=== PATIENT | female | born 1935 | race Caucasian/White ===

== ENCOUNTER 2018-11-22 17:07 | Inpatient (IN) | payer MEDICARE, OTHER ==
[2018-11-22] MEDS ORDERED: cefTRIAXone\\ROCEPHIN 1 GM VIAL ONE (17:42)
[2018-11-22 17:48] LABS: #Eosinphils 0.1 thou/uL (0.0-0.7); #Lymphocytes 3.6 thou/uL (1.20-3.40); #Monocytes 0.6 thou/uL (0.11-0.59); #Neutrophils 6.4 thou/uL (1.40-6.50); %Basophils 0.2 % (0.0-1.0); %Eosinophils 0.8 % (0.0-10.0); %Lymphocytes 33.8 % (21.0-51.0); %Monocytes 5.8 % (0.0-10.0); %Neutrophils 59.4 % (42.0-75.0); Hemoglobin 12.6 g/dL (12.0-16.0); Mean Corpuscular HGB CONC 33.5 g/dL (32.0-36.0); Mean Corpuscular Hemoglobin 30.1 pg (27.0-31.0); Mean Platelet Volume 7.9 fL (7.4-10.4); Platelet Count 230 thou/uL (130-400); RBC Distribution Width 12.4 % (11.5-14.5); Red Blood Cell (RBC) Count 4.18 mill/uL (4.20-5.40); White Blood Cell (WBC) Count 10.7 thou/uL (4.8-10.8)
--- NOTE | 2018-11-22 18:05 | RAD ---
CHEST ONE VIEW: History: Dyspnea, sepsis. Comparison: None. FINDINGS: There is a patchy left basilar airspace opacity. Subtle opacity right lung base. The heart size is up per limits of normal. No acute osseous abnormality. IMPRESSION: Findings concerning for bibasilar pneumonia. Follow up after treatment recommended. POS: [facility]
[2018-11-22 18:06] LABS: ALT (SGPT) 25 U/L (8-55); AST (SGOT) 19 U/L (5-34); Albumin 4.1 g/dL (3.4-4.8); Alkaline Phosphatase 51 U/L (40-150); Anion Gap 14 mmol/L (10-20); BUN (Urea Nitrogen) 14 mg/dL (9.8-20.1); Bilirubin, Total 0.7 mg/dL (0.2-1.2); Calc. Creatinine Clearance 0 mL/min (70-130); Calcium 9.6 mg/dL (7.8-10.44); Carbon Dioxide 24 mmol/L (23-31); Chloride 104 mmol/L (98-107); Estimated GFR-MDRD 76; Globulin 3.5 g/dL (2.4-3.5); Glucose 131 mg/dL (83-110); Potassium 3.4 mmol/L (3.5-5.1); Protein, Total 7.6 g/dL (6.0-8.3); Sodium 139 mmol/L (136-145)
[2018-11-22] MEDS ORDERED: Acetaminophen 500 MG TAB ONE (18:37)
[2018-11-22 19:05] LABS: Bilirubin Negative (Negative); Blood, Urine Negative (Negative); Clarity CLEAR (Clear); Glucose, Urine (Dipstick) Negative (Negative); Leukocyte Moderate (Negative); Nitrite Negative (Negative); Protein, Urine (Dipstick) Trace mg/dL (Neg-Trace); Specific Gravity, Urine 1.018 (1.002-1.036); Urobilinogen 0.2 mg/dL (0.2-1.0); pH, Urine 5.5 (5.0-9.0)
[2018-11-22 19:07] LABS: Bacteria/HPF Rare-Few HPF (None Seen); Hyaline Casts/LPF 0-3 HYALINE CAST LPF (0-3 Hyaline); Pathc Cast-AUWi Flag 0.27 (0-2.49); RBC/HPF 0-3 HPF (0-3); Squamous Epithelial 0-3 HPF (0-3); WBC/HPF 21-50 HPF (0-3)
[2018-11-22] MEDS ORDERED: Azithromycin 500 MG VIAL ONE (19:07)
[2018-11-22] MEDS ORDERED: Oseltamivir 75 MG CAP PO SCH (19:15)
[2018-11-22] MEDS ORDERED: Acetaminophen 325 MG TAB PO PRN (20:27)
[2018-11-22] MEDS ORDERED: Ondansetron PF 4 MG/2 ML Vial IVP PRN (20:27)
[2018-11-22] MEDS ORDERED: Ondansetron ODT 4 MG TAB SL PRN (21:08)
--- NOTE | 2018-11-22 21:42 | PDOC.EVN ---
Event Note - Event Note Event Note: H&P #[id number]
[2018-11-22 21:56] LABS: Lactic Acid 2.1 mmol/L (0.5-2.2)
[2018-11-22 22:14] VITALS: BMI 26.8
--- NOTE | 2018-11-23 04:00 | HP ---
ADMITTING COMPLAINT: Shortness of breath. HISTORY OF PRESENT ILLNESS: This is an 83-year-old female, who presents to the hospital with complaints of flu-like symptoms, cough, as well as shortness of breath for about one week and malaise. The patient states that she has apparently had a 7-pound weight loss over the last week. Denies any nausea, vomiting, diarrhea, constipation, chest pain, fevers or chills, but does attest shortness of breath. The patient does not have any other associated symptoms or complaints. The patient states that she otherwise has no alleviating or aggravating factors. The patient was seen and examined in the room. All questions answered. REVIEW OF SYSTEMS: All systems reviewed. Pertinent positives in HPI, otherwise negative. PAST MEDICAL HISTORY: Positive for diabetes type 2, history of TIA, hypertension. FAMILY HISTORY: Noncontributory. HOME MEDICATIONS: See MAR. SOCIAL HISTORY: Denies any alcohol. Denies any smoking. PHYSICAL EXAMINATION: VITAL SIGNS: Blood pressure 135/75, pulse of 69, respiratory rate of 18, O2 saturation 97% on room air. GENERAL: No acute distress. Patient lying in bed comfortably. HEENT: Normocephalic and atraumatic. Extraocular muscles are intact. Oral cavity moist and pink. CARDIOVASCULAR: Reveals regular rate and rhythm. S1 and S2. PULMONARY: Reveals no respiratory distress, however, mild diminishing breath sounds in bilateral lower lobes. EXTREMITIES: 2+ peripheral pulses. Trace edema noted. NEUROLOGICAL: Cranial nerves 2 through 12 intact. IMAGING: Chest x-ray shows bibasilar pneumonia. LABORATORY DATA: CBC within normal limits. Basic metabolic panel within normal limits except for lactic acid which is 2.8, glucose of 131, potassium 3.4. Urinalysis; positive ketones, moderate leuks, and white blood cells of 21 to 25. ASSESSMENT: 1. Bronchitis. 2. Possible flu-like syndrome. 3. Lactic acidosis. 4. Hypokalemia. 5. Hypertension. 6. Diabetes mellitus, type 2. PLAN: At this point in time, we will admit the patient to the inpatient service. Start her on IV antibiotics. We will continue home medications and resume home medications as appropriate. Insulin for diabetes and hold metformin for now. The patient to have lab work done tomorrow and continue IV antibiotics likely for 1 to 2 days. Awaiting cultures. We will see how the patient progresses. Of note, the patient did have an influenza panel done in the ER, A and B, both antigens were negative, so we will hold off on the Tamiflu. Wishes to remain a full code at this point in time. Case and plan discussed with the patient at length. She understood and agreed with this plan. Job ID: [id number]
[2018-11-23] MEDS ORDERED: Prevnar 13-Val Conj/PF 0.5 ML SYRINGE IM ONE (09:00)
[2018-11-23] MEDS: Lisinopril 20 MG TAB PO SCH (09:04)
[2018-11-23] MEDS: Atorvastatin Calcium 10 MG TAB PO SCH (09:04)
[2018-11-23] MEDS: Aspirin 81 mg Enteric Coated Tablet PO SCH (09:04)
[2018-11-23 09:42] LABS: #Eosinphils 0.1 thou/uL (0.0-0.7); #Monocytes 0.4 thou/uL (0.11-0.59); #Neutrophils 4.4 thou/uL (1.40-6.50); %Basophils 0.4 % (0.0-1.0); %Lymphocytes 28.5 % (21.0-51.0); %Monocytes 6.4 % (0.0-10.0); %Neutrophils 63.7 % (42.0-75.0); Hemoglobin 10.8 g/dL (12.0-16.0); Mean Corpuscular HGB CONC 33.5 g/dL (32.0-36.0); Mean Corpuscular Volume 89.6 fL (78.0-98.0); Mean Platelet Volume 7.9 fL (7.4-10.4); Platelet Count 207 thou/uL (130-400); RBC Distribution Width 12.4 % (11.5-14.5); Red Blood Cell (RBC) Count 3.59 mill/uL (4.20-5.40); White Blood Cell (WBC) Count 6.8 thou/uL (4.8-10.8)
[2018-11-23 09:56] LABS: Lactic Acid 0.9 mmol/L (0.5-2.2)
[2018-11-23 09:59] LABS: Anion Gap 13 mmol/L (10-20); BUN (Urea Nitrogen) 7 mg/dL (9.8-20.1); Calc. Creatinine Clearance 83 mL/min (70-130); Calcium 8.4 mg/dL (7.8-10.44); Carbon Dioxide 24 mmol/L (23-31); Chloride 106 mmol/L (98-107); Estimated GFR-MDRD Greater than 90; Glucose 194 mg/dL (83-110); Magnesium 1.3 mg/dL (1.6-2.6); Potassium 3.2 mmol/L (3.5-5.1); Sodium 140 mmol/L (136-145)
[2018-11-23] MEDS: cefTRIAXone\\ROCEPHIN 2 GM in Sodium Chloride 0.9% 100 ML IVPB SCH (10:17)
[2018-11-23] MEDS ORDERED: Magnesium Sulfate 4 GM in Sodium Chloride 0.9% 250 ML 250 ML IVPB SCH (11:00)
[2018-11-23 11:53] LABS: Legionella Urinary Ag Negative (Negative); Strep pneumo Urine Ag NEGATIVE (NEGATIVE)
[2018-11-23] MEDS: guaiFENesin ER 600 MG TAB PO SCH (20:44)
[2018-11-23] MEDS ORDERED: guaiFENesin ER 600 MG TAB PO SCH (21:00)
--- NOTE | 2018-11-23 22:47 | PDOC.PN ---
- Subjective Encounter Start Date: 11/23/18 Encounter Start Time: 18:00 Patient seen and examined for Pneumonia. Dry cough +. No new complaints. No overnight events - Objective MAR Reviewed: Yes Vital Signs & Weight: Vital Signs (12 hours) Temp Pulse Resp BP Pulse Ox 11/23/18 22:23 131/74 11/23/18 19:38 98.6 F 96 20 169/82 H 96 11/23/18 18:50 72 16 95 Weight Weight 161 lb I&O: 11/22/18 11/23/18 11/24/18 06:59 06:59 06:59 Intake Total 250 Balance 250 Result Diagrams: 11/23/18 09:20 11/23/18 09:20 Additional Labs: Accuchecks 11/23/18 11/23/18 19:34 05:28 POC Glucose 217 H 152 H Laboratory Tests 11/23/18 09:20 Magnesium 1.3 L Radiology Reviewed by me: Yes (CXR - bibasilar infiltrate) Phys Exam - Physical Examination Constitutional: NAD Neck: no JVD Respiratory: no wheezing Bibasilar rales/rhonchi, No accessory muscle use Cardiovascular: RRR, no rub no heaves/pulsations Gastrointestinal: soft, non-tender, no distention, positive bowel sounds Musculoskeletal: no edema Neurological: non-focal, normal sensation, moves all 4 limbs Psychiatric: normal affect, A&O x 3 Skin: no rash Dx/Plan - Plan DVT proph w/SCDs 1. Bibasilar Pneumonia ?Pneumococcal 2. Recent URI 3. Hypokalemia 4. Hypomagnesemia 5. Lactic acidosis 6. HLD 7. h/o TIA 8. DM2 9. HTN PLAN: Replace electrolytes Add IV Ceftriaxone to Levaquin Await cultures [employer] eval to r/o aspiration AM labs Repeat CXR in AM Cont current meds as below Review of Systems - Review of Systems Cardiovascular: negative: chest pain, palpitations, orthopnea, paroxysmal nocturnal dyspnea, edema, light headedness, other Gastrointestinal: negative: Nausea, Vomiting, Abdominal Pain, Diarrhea, Constipation, Melena, Hematochezia, Other Genitourinary: negative: Dysuria, Frequency, Incontinence, Hematuria, Retention , Other - Medications/Allergies Allergies/Adverse Reactions: Allergies Allergy/AdvReac Type Severity Reaction Status Date / Time iodine Allergy Verified 11/22/18 21:22 Sulfa (Sulfonamide Allergy Verified 11/22/18 21:22 Antibiotics) Medications: Current Medications Acetaminophen (Tylenol) 650 mg PO Q4H PRN PRN Reason: Headache/Fever/Mild Pain (1-3) Albuterol/Ipratropium (Duoneb) 3 ml NEB [id number] [facility] Last Admin: 11/23/18 18:50 Dose: 3 ml Albuterol/Ipratropium (Duoneb) 3 ml NEB Q4H PRN PRN Reason: SOB &/or Wheezing Aspirin (Ecotrin) 81 mg PO DAILY [facility] Last Admin: 11/23/18 09:04 Dose: 81 mg Atorvastatin Calcium (Lipitor) 10 mg PO DAILY [facility] Last Admin: 11/23/18 09:04 Dose: 10 mg Guaifenesin (Mucinex) 600 mg PO Q12HR [facility] Last Admin: 11/23/18 20:44 Dose: 600 mg Levofloxacin 500 mg/ Device 100 mls @ 100 mls/hr IVPB Q24HR [facility] Last Admin: 11/23/18 20:44 Dose: 100 mls Ceftriaxone Sodium 2 gm/ (Sodium Chloride) 100 mls @ 200 mls/hr IVPB Q24HR [facility] Last Admin: 11/23/18 10:17 Dose: 100 mls Lisinopril (Zestril) 20 mg PO DAILY [facility] Last Admin: 11/23/18 09:04 Dose: 20 mg Non-Formulary Medication (Metformin Hcl [Metformin Hcl]) 1,000 mg PO DAILY [facility] Ondansetron HCl (Zofran) 4 mg IVP Q6H PRN PRN Reason: Nausea/Vomiting Saccharomyces Boulardii (Florastor) 250 mg PO DAILY [facility] Sitagliptin Phosphate (Januvia) 100 mg PO DAILY [facility] Verapamil HCl (Calan Sr) 240 mg PO DAILY [facility] Last Admin: 11/23/18 09:04 Dose: 240 mg
[2018-11-24] MEDS ORDERED: metFORMIN 500 MG TAB PO SCH (08:00)
[2018-11-24 08:26] LABS: #Eosinphils 0.1 thou/uL (0.0-0.7); #Lymphocytes 1.9 thou/uL (1.20-3.40); #Monocytes 0.5 thou/uL (0.11-0.59); #Neutrophils 3.6 thou/uL (1.40-6.50); %Basophils 0.6 % (0.0-1.0); %Eosinophils 1.1 % (0.0-10.0); %Lymphocytes 31.6 % (21.0-51.0); %Monocytes 8.3 % (0.0-10.0); %Neutrophils 58.4 % (42.0-75.0); Hemoglobin 10.5 g/dL (12.0-16.0); Mean Corpuscular HGB CONC 32.4 g/dL (32.0-36.0); Mean Corpuscular Hemoglobin 29.5 pg (27.0-31.0); Mean Corpuscular Volume 91.2 fL (78.0-98.0); Mean Platelet Volume 7.6 fL (7.4-10.4); Platelet Count 229 thou/uL (130-400); RBC Distribution Width 12.4 % (11.5-14.5); Red Blood Cell (RBC) Count 3.57 mill/uL (4.20-5.40); White Blood Cell (WBC) Count 6.1 thou/uL (4.8-10.8)
[2018-11-24] MEDS ORDERED: Magnesium Sulfate 4 GM in Sodium Chloride 0.9% 250 ML 250 ML IVPB SCH (08:45)
[2018-11-24] MEDS ORDERED: Potassium Chloride 10 MEQ TAB PO SCH (08:45)
[2018-11-24 08:47] LABS: Phosphorus 3.2 mg/dL (2.3-4.7)
[2018-11-24 08:50] LABS: ALT (SGPT) 14 U/L (8-55); AST (SGOT) 12 U/L (5-34); Albumin 3.4 g/dL (3.4-4.8); Alkaline Phosphatase 48 U/L (40-150); Anion Gap 15 mmol/L (10-20); BUN (Urea Nitrogen) 5 mg/dL (9.8-20.1); Bilirubin, Total 0.4 mg/dL (0.2-1.2); Calc. Creatinine Clearance 72 mL/min (70-130); Calcium 8.5 mg/dL (7.8-10.44); Carbon Dioxide 25 mmol/L (23-31); Chloride 104 mmol/L (98-107); Estimated GFR-MDRD 81; Globulin 3.1 g/dL (2.4-3.5); Glucose 221 mg/dL (83-110); Magnesium 1.9 mg/dL (1.6-2.6); Protein, Total 6.5 g/dL (6.0-8.3); Sodium 141 mmol/L (136-145)
[2018-11-24 08:58] LABS: Potassium 2.9 mmol/L (3.5-5.1)
[2018-11-24] MEDS: Alogliptin 6.25 MG TAB PO SCH (09:04)
[2018-11-24] MEDS: Doxycycline 100 MG CAP PO SCH ×2 (09:04→20:21)
[2018-11-24] MEDS: Aspirin 81 mg Enteric Coated Tablet PO SCH (09:04)
[2018-11-24] MEDS: guaiFENesin ER 600 MG TAB PO SCH ×2 (09:04→20:21)
[2018-11-24] MEDS: Saccharomyces boulardii 250 MG CAP PO SCH (09:04)
[2018-11-24] MEDS: Lisinopril 20 MG TAB PO SCH (09:05)
[2018-11-24] MEDS: Atorvastatin Calcium 10 MG TAB PO SCH (09:05)
[2018-11-24] MEDS: cefTRIAXone\\ROCEPHIN 2 GM in Sodium Chloride 0.9% 100 ML IVPB SCH (09:09)
[2018-11-24] MEDS ORDERED: Potassium Chloride 40 MEQ in Premix Bag 1 BAG IVPB SCH (09:15)
--- NOTE | 2018-11-24 09:28 | RAD ---
PA AND LATERAL VIEWS CHEST: Date: 11/24/18 HISTORY: Pneumonia. FINDINGS: The heart size is normal. The aorta is tortuous. The lungs are well expanded without focal areas of c onsolidation, pneumothoraces, or pleural effusions. No acute osseous abnormalities are seen. IMPRESSION: No acute process. POS: [facility]
[2018-11-24] MEDS: Potassium Chloride 20 MEQ in Premix Bag 1 BAG IVPB SCH ×2 (11:00→14:24)
[2018-11-24] MEDS: Potassium Chloride 10 MEQ TAB PO SCH ×2 (11:51→16:18)
[2018-11-24] MEDS ORDERED: Insulin Regular 300 UNITS/3 ML VIAL SC PRN (12:03)
[2018-11-24] MEDS ORDERED: Dextrose 50% Abboject 50 ML SYRINGE SLOW IVP PRN (12:03)
[2018-11-24] MEDS ORDERED: Dextrose 5% in Water 1,000 ML IV PRN (12:03)
[2018-11-24] MEDS ORDERED: Polyethylene Glycol 3350 17 GM Packet PO SCH (12:45)
[2018-11-24] MEDS: Insulin Regular 300 UNITS/3 ML VIAL SC PRN (12:52)
[2018-11-24] MEDS: metFORMIN 500 MG TAB PO SCH (16:17)
--- NOTE | 2018-11-24 18:32 | PDOC.PN ---
- Subjective Encounter Start Date: 11/24/18 Encounter Start Time: 13:30 Patient seen and examined for Pneumonia. Feeling somewhat better. Cough +. No new complaints. No overnight events - Objective MAR Reviewed: Yes Vital Signs & Weight: Vital Signs (12 hours) Temp Pulse Resp BP BP Pulse Ox 11/24/18 15:00 78 16 97 11/24/18 10:25 82 16 97 11/24/18 10:19 95 11/24/18 09:05 127/63 11/24/18 08:10 98.5 F 96 16 127/63 95 11/24/18 06:36 88 16 96 Weight Weight 161 lb I&O: 11/23/18 11/24/18 11/25/18 06:59 06:59 06:59 Intake Total 250 900 Balance 250 900 Result Diagrams: 11/24/18 07:51 11/24/18 07:51 Additional Labs: Accuchecks 11/24/18 11/24/18 11/23/18 16:17 11:44 19:34 POC Glucose 141 H 282 H 217 H Radiology Reviewed by me: Yes (CXR - bronchopneumonia) Phys Exam - Physical Examination Constitutional: NAD Respiratory: no wheezing Scat rhonchi Cardiovascular: RRR, no rub Gastrointestinal: soft, non-tender, positive bowel sounds Musculoskeletal: no edema Neurological: non-focal, moves all 4 limbs Dx/Plan - Plan DVT proph w/SCDs 1. Bonchopneumonia ?Pneumococcal 2. Recent URI 3. Hypokalemia 4. Hypomagnesemia 5. Lactic acidosis 6. HLD 7. h/o TIA 8. DM2 9. HTN PLAN: Replace Potassium Change Atbx to PO Await cultures Potassium level in AM DC in AM if stable Cont other meds as below Microbiology 11/22/18 18:50 Urine voided Urine Culture - Final NO GROWTH AT 48 HOURS 11/22/18 17:40 Nasal swab Influenza Types A,B Direct EIA - Final 11/22/18 17:30 Venous blood - Right Arm Blood Culture - Preliminary NO GROWTH AT 48 HOURS 11/22/18 17:29 Venous blood - Left Arm Blood Culture - Preliminary NO GROWTH AT 48 HOURS Laboratory Tests 11/24/18 07:51 Magnesium 1.9 Review of Systems - Review of Systems Constitutional: negative: fever, chills, sweats, weakness, malaise, other Respiratory: Cough, Dry Cardiovascular: negative: chest pain, palpitations, orthopnea, paroxysmal nocturnal dyspnea, edema, light headedness, other - Medications/Allergies Allergies/Adverse Reactions: Allergies Allergy/AdvReac Type Severity Reaction Status Date / Time iodine Allergy Verified 11/22/18 21:22 Sulfa (Sulfonamide Allergy Verified 11/22/18 21:22 Antibiotics) Medications: Current Medications Acetaminophen (Tylenol) 650 mg PO Q4H PRN PRN Reason: Headache/Fever/Mild Pain (1-3) Last Admin: 11/24/18 03:53 Dose: 650 mg Albuterol/Ipratropium (Duoneb) 3 ml NEB [id number] [facility] Last Admin: 11/24/18 15:00 Dose: 3 ml Albuterol/Ipratropium (Duoneb) 3 ml NEB Q4H PRN PRN Reason: SOB &/or Wheezing Last Admin: 11/24/18 04:12 Dose: 3 ml Alogliptin Benzoate (Alogliptin) 12.5 mg PO DAILY [facility] Last Admin: 11/24/18 09:04 Dose: 12.5 mg Aspirin (Ecotrin) 81 mg PO DAILY [facility] Last Admin: 11/24/18 09:04 Dose: 81 mg Atorvastatin Calcium (Lipitor) 10 mg PO DAILY [facility] Last Admin: 11/24/18 09:05 Dose: 10 mg Cefdinir (Omnicef) 300 mg PO BID [facility] Dextrose/Water (Dextrose 50%) 25 gm SLOW IVP PRN PRN PRN Reason: Hypoglycemia Doxycycline Hyclate (Vibramycin) 100 mg PO BID [facility] Last Admin: 11/24/18 09:04 Dose: 100 mg Glucagon (Glucagon) 1 mg IM PRN PRN PRN Reason: Hypoglycemia Guaifenesin (Mucinex) 600 mg PO Q12HR [facility] Last Admin: 11/24/18 09:04 Dose: 600 mg Dextrose/Water (D5w) 1,000 mls @ 0 mls/hr IV .Q0M PRN PRN Reason: Hypoglycemia Insulin Human Regular (Humulin R) 0 units SC .MILD SLIDING SCALE PRN PRN Reason: Mild Correctional Scale Last Admin: 11/24/18 12:52 Dose: 282 unit Insulin Human Regular (Humulin R) 0 units SC .BEDTIME SLIDING SC PRN PRN Reason: Bedtime Correctional Scale Lisinopril (Zestril) 20 mg PO DAILY [facility] Last Admin: 11/24/18 09:05 Dose: 20 mg Metformin HCl (Glucophage) 1,000 mg PO BID[facility] Last Admin: 11/24/18 16:17 Dose: 1,000 mg Ondansetron HCl (Zofran) 4 mg IVP Q6H PRN PRN Reason: Nausea/Vomiting Polyethylene Glycol (Miralax) 17 gm PO DAILY [facility] Potassium Chloride (Klor-Con 10) 10 meq PO TID-[facility] Last Admin: 11/24/18 16:18 Dose: 10 meq Saccharomyces Boulardii (Florastor) 250 mg PO DAILY [facility] Last Admin: 11/24/18 09:04 Dose: 250 mg Senna/Docusate Sodium (Senokot S) 2 tab PO BID [facility] Sodium Chloride (Flush - Normal Saline) 10 ml IVF Q12HR [facility] Sodium Chloride (Flush - Normal Saline) 10 ml IVF PRN PRN PRN Reason: Saline Flush Verapamil HCl (Calan Sr) 240 mg PO DAILY [facility] Last Admin: 11/24/18 09:04 Dose: 240 mg
[2018-11-24] MEDS: Cefdinir 300 MG CAP PO SCH (20:21)
[2018-11-24] MEDS: Senokot S 8.6-50 MG TAB PO SCH (20:21)
[2018-11-25] MEDS: Insulin Regular 300 UNITS/3 ML VIAL SC PRN (05:50)
[2018-11-25 07:38] LABS: Potassium 4.3 mmol/L (3.5-5.1)
[2018-11-25] MEDS: guaiFENesin ER 600 MG TAB PO SCH (08:22)
[2018-11-25] MEDS: Senokot S 8.6-50 MG TAB PO SCH (08:22)
[2018-11-25] MEDS: Cefdinir 300 MG CAP PO SCH (08:22)
[2018-11-25] MEDS: Doxycycline 100 MG CAP PO SCH (08:24)
[2018-11-25] MEDS: Alogliptin 6.25 MG TAB PO SCH (08:24)
[2018-11-25] MEDS: metFORMIN 500 MG TAB PO SCH (08:25)
[2018-11-25] MEDS: Saccharomyces boulardii 250 MG CAP PO SCH (08:25)
[2018-11-25] MEDS: Lisinopril 20 MG TAB PO SCH (08:25)
[2018-11-25] MEDS: Aspirin 81 mg Enteric Coated Tablet PO SCH (08:26)
[2018-11-25] MEDS: Potassium Chloride 10 MEQ TAB PO SCH ×2 (08:26→11:46)
[2018-11-25] MEDS: Atorvastatin Calcium 10 MG TAB PO SCH (08:26)
[2018-11-25] MEDS ORDERED: Polyethylene Glycol 3350 17 GM Packet PO SCH (09:00)
--- NOTE | 2018-11-25 14:42 | DIS ---
DATE OF ADMISSION: 11/22/2018 DATE OF DISCHARGE: 11/25/2018 DISCHARGE DISPOSITION: Home. FOLLOWUP: Follow up with primary care physician, Dr. Anabelle Weller in 1 week. A repeat basic metabolic profile after 1 to 2 weeks is recommended. Primary care physician advised to follow. The patient was seen and examined on the day of discharge. Denies any new complaints. No chest pain, shortness of breath, or palpitations reported. Overall symptomatically, she feels much better. ALLERGIES: THE PATIENT IS ALLERGIC TO IODINE AND SULFA. DISCHARGE MEDICATIONS: 1. Omnicef 300 mg twice a day for next 5 days. 2. Mucinex twice daily for 1 week. 3. All other home medications were left unchanged. BRIEF HOSPITAL COURSE: The patient is an 83-year-old female with diabetes mellitus type 2 and hypertension, presented to the hospital with cough and shortness of breath of 1-week duration. She has not been eating well and has lost approximately 7 pounds over the last 1 week. Please refer to the history and physical for further details. The patient was admitted to the hospital with a diagnosis of suspected pneumonia. She was started on broad-spectrum antibiotics. X-ray on admission showed bibasilar pneumonia. She did not have any swallowing difficulty per Speech Therapies. Antibiotics have been changed to p.o. She had a chest x-ray, PA and lateral yesterday that did not show new infiltrate. Overall, she feels much better. She had hypokalemia with potassium 2.9, which has been replaced. Her potassium on the day of discharge is 4.3. Her magnesium has also been corrected. DIAGNOSTIC TESTS: Magnesium 1.3, at discharge 1.9. Potassium lowest 2.9, at discharge 4.3. WBC of 10.7. Lactic acid 2.8 on admission. Troponin was negative. Urine for Legionella pneumophila and Streptococcus pneumoniae negative. Urinalysis showed 21 to 50 wbc's with negative urine culture. Blood cultures were negative at 48 hours. Influenza testing was negative. FINAL DIAGNOSES: 1. Bronchopneumonia, suspected pneumococcal. 2. Recent upper respiratory tract infection. 3. Hypokalemia, replaced. 4. Hypomagnesemia, replaced. 5. Lactic acidosis. 6. Hyperlipidemia. 7. History of transient ischemic attack. 8. Diabetes mellitus, type 2. 9. Hypertension. 10. Weight loss of approximately 7 pounds recently due to poor appetite. Primary care physician advised to follow. PLAN: Plan of care was discussed with the patient and the family in detail they stated understanding. Job ID: [id number]
[2018-11-25 15:51] VITALS: BP 137/73; TEMP 97.4
== END 2018-11-25 15:56 | disposition home or self-care (01) | DRG 194 ==
LOC: ERS 17:07 → T4-A 18:40
PROVIDERS: ADMIT Emergency Medicine; ATTEND Emergency Medicine
DX: J13 Pneumonia due to Streptococcus pneumoniae (principal); E87.2 Acidosis; E11.9 Type 2 diabetes mellitus without complications; I10 Essential (primary) hypertension; E87.6 Hypokalemia; J40 Bronchitis, not specified as acute or chronic; E83.42 Hypomagnesemia; E78.5 Hyperlipidemia, unspecified; R63.4 Abnormal weight loss; Z86.73 Personal history of transient ischemic attack (TIA), and cerebral infarction without residual deficits; Z88.2 Allergy status to sulfonamides; Z91.041 Radiographic dye allergy status; Z68.26 Body mass index [BMI] 26.0-26.9, adult
CPT/HCPCS: 36415; 36416; 71045; 71046; 80048; 80053; 81003; 81015; 83605; 83735; 83880; 84100; 84132; 84443; 84484; 85025; 85060; 87040; 87086; 87804; 87899; 90471; 90670; 93005; 94640; 94760; 96365; 96367; 99292; G0009; J0456; J0696; J1815; J1956; J3475; J3480; J7050; J7620

== ENCOUNTER 2019-09-25 10:52 | Emergency (ER) | payer MEDICARE, OTHER ==
[2019-09-25 12:10] LABS: Bilirubin Negative (Negative); Blood, Urine Negative (Negative); Clarity Clear (Clear); Glucose, Urine (Dipstick) Normal (Negative); Leukocyte Negative Leu/uL (Negative); Nitrite Negative (Negative); Protein, Urine (Dipstick) Negative (Neg-Trace); Urobilinogen Normal mg/dL (Less than 2)
== END 2019-09-25 13:00 | disposition home or self-care (01) ==
LOC: ERS 10:52
DX: E11.65 Type 2 diabetes mellitus with hyperglycemia (principal); I10 Essential (primary) hypertension; Z86.73 Personal history of transient ischemic attack (TIA), and cerebral infarction without residual deficits; Z79.899 Other long term (current) drug therapy; Z79.82 Long term (current) use of aspirin; Z79.84 Long term (current) use of oral hypoglycemic drugs
CPT/HCPCS: 36416; 81003; 99283

== ENCOUNTER 2020-02-12 11:34 | Emergency (ER) | payer MEDICARE, OTHER ==
[~2020-02-12 11:34] MED LIST: Iopamidol-370 76% 500 ML 1 ML ONE
[2020-02-12 12:18] LABS: Bilirubin Negative (Negative); Blood, Urine Negative (Negative); Clarity Clear (Clear); Glucose, Urine (Dipstick) Normal (Negative); Leukocyte Negative Leu/uL (Negative); Nitrite Negative (Negative); Protein, Urine (Dipstick) Negative (Neg-Trace); Urobilinogen Normal mg/dL (Less than 2)
[2020-02-12] MEDS ORDERED: Ketorolac Tromethamine 30 MG/ML VIAL ONE (12:24)
[2020-02-12 12:48] LABS: #Basophils 0.1 thou/uL (0.0-0.2); #Eosinphils 0.1 thou/uL (0.0-0.7); #Monocytes 0.7 thou/uL (0.11-0.59); #Neutrophils 6.2 thou/uL (1.40-6.50); %Basophils 0.7 % (0.0-1.0); %Eosinophils 0.6 % (0.0-10.0); %Lymphocytes 29.7 % (21.0-51.0); %Monocytes 7.3 % (0.0-10.0); %Neutrophils 61.7 % (42.0-75.0); Mean Corpuscular HGB CONC 33.6 g/dL (32.0-36.0); Mean Corpuscular Hemoglobin 31.2 pg (27.0-31.0); Mean Corpuscular Volume 92.8 fL (78.0-98.0); Mean Platelet Volume 7.9 fL (7.4-10.4); Platelet Count 225 thou/uL (130-400); RBC Distribution Width 12.6 % (11.5-14.5); Red Blood Cell (RBC) Count 3.84 mill/uL (4.20-5.40); White Blood Cell (WBC) Count 10.1 thou/uL (4.8-10.8)
[2020-02-12 13:07] LABS: ALT (SGPT) 12 U/L (8-55); AST (SGOT) 20 U/L (5-34); Albumin 3.9 g/dL (3.4-4.8); Alkaline Phosphatase 43 U/L (40-110); Anion Gap 18 mmol/L (10-20); BUN (Urea Nitrogen) 13 mg/dL (9.8-20.1); Bilirubin, Total 0.4 mg/dL (0.2-1.2); Calc. Creatinine Clearance 0 mL/min (70-130); Calcium 9.1 mg/dL (7.8-10.44); Carbon Dioxide 25 mmol/L (23-31); Chloride 102 mmol/L (98-107); Estimated GFR-MDRD 84; Globulin 3.4 g/dL (2.4-3.5); Glucose 94 mg/dL (83-110); Potassium 4.6 mmol/L (3.5-5.1); Protein, Total 7.3 g/dL (6.0-8.3); Sodium 140 mmol/L (136-145)
[2020-02-12] MEDS ORDERED: Acetaminophen 500 MG TAB ONE (14:27)
[2020-02-12] MEDS ORDERED: diphenhydrAMINE 50 MG/ML VIAL ONE (15:43)
[2020-02-12] MEDS ORDERED: methylPREDNISolone Sod Succ/PF 125 MG/2 ML VIAL ONE (15:44)
[2020-02-12] MEDS ORDERED: Famotidine/PF 20 mg/2ml Vial ONE (15:44)
--- NOTE | 2020-02-12 19:13 | CT ---
CT ABDOMEN AND PELVIS: Date: 02-12-2020 Comparison: None History: Rectal pain radiating to the back. Technique: Axial CT imaging at 5 mm intervals from the lung bases through the pubic symphysis with in travenous contrast. Coronal and sagittal reformatted imaging obtained. FINDINGS: Imaged lung bases grossly unremarkable. Cholecystectomy clips are present. No free intraperitoneal ai r or fluid. The liver, spleen, pancreas, and adrenal glands appear grossly unremarkable. There is a small cyst em anating from the upper pole of the left kidney measuring approximately 1.2 cm. There are a few punct ate calcifications within the left kidney which may represent nonobstructing stones or vascular calci fications. Evaluation of the bowel is limited without contrast media. There is mild stranding of the fat adjacent to the tip of the coccyx extending posteriorly and superi jane which may represent a mild degree of inflammatory change in this region. No significant rectal w all thickening is noted. There is no stranding of the presacral fat and there is no free fluid seen w ithin the pelvis. There is significant stool noted throughout the colon. There is no evidence for bowel obstruction. No focal area of bowel dilation. There is extensive atherosclerotic calcification of the abdominal aort a and its branches. There is a small hiatal hernia. No lymphadenopathy is noted within the abdomen or pelvis. Review of the osseous structures demonstrate age indeterminate superior endplate fracture of L5. There is multilevel lower lumbar spine facet hypertrophy. There is a normal appearing appendix noted. IMPRESSION: 1. No free intraperitoneal air or evidence of small bowel obstruction. Mild fat stranding adjacent to the tip of the coccyx may signify a mild degree of inflammatory change. Significant stool seen throu ghout the colon. POS: [facility]
== END 2020-02-12 18:52 | disposition home or self-care (01) ==
LOC: ERS 11:34
DX: K64.4 Residual hemorrhoidal skin tags (principal); S43.409A Unspecified sprain of unspecified shoulder joint, initial encounter; E11.9 Type 2 diabetes mellitus without complications; I10 Essential (primary) hypertension; Z86.73 Personal history of transient ischemic attack (TIA), and cerebral infarction without residual deficits; Z79.82 Long term (current) use of aspirin; Z79.84 Long term (current) use of oral hypoglycemic drugs; Z79.899 Other long term (current) drug therapy
CPT/HCPCS: 36415; 74177; 80053; 81003; 82274; 85025; 96374; 96375; J1200; J1885; J2930; Q9967; S0028

== ENCOUNTER 2020-02-28 09:40 | Outpatient (CLI) | payer MEDICARE, OTHER ==
[2020-02-29 13:56] LABS: SARS-CoV-2 MS2 Positive; SARS-CoV-2 N Gene Negative; SARS-CoV-2 S Gene Negative; SARS-CoV-2 orf1ab Negative
== END 2020-02-28 09:41 | disposition home or self-care (01) ==
LOC: LABBT 09:40
PROVIDERS: ATTEND Specialist
DX: Z01.812 Encounter for preprocedural laboratory examination (principal); Z11.59 Encounter for screening for other viral diseases; K59.00 Constipation, unspecified; M53.3 Sacrococcygeal disorders, not elsewhere classified; M48.46XA Fatigue fracture of vertebra, lumbar region, initial encounter for fracture
CPT/HCPCS: 87635; U0003

== ENCOUNTER 2020-03-02 09:46 | Day surgery (SDC) | payer MEDICARE, OTHER ==
[2020-03-02] MEDS ORDERED: Magnevist 469MG/ML 20 ML VIAL ONE (10:14)
[2020-03-02] MEDS ORDERED: Lidocaine 1% PF 5 ML VIAL ONE (10:57)
[2020-03-02] MEDS ORDERED: Ondansetron PF 4 MG/2 ML Vial ONE (10:57)
[2020-03-02] MEDS ORDERED: PROPOFOL 200 MG/20 ML VIAL ONE (10:57)
[2020-03-02] MEDS ORDERED: Fentanyl 100 MCG/2 ML VIAL ONE (11:59)
--- NOTE | 2020-03-02 13:56 | MRI ---
Exam: Pelvic MRI with and without contrast HISTORY: Sacrococcygeal disorder. COMPARISON: None FINDINGS: Visualized intra-abdominal and pelvic structures have appropriate signal intensity. Visualized bladder has a normal mucosa. Normal reproductive organs are not appreciated. Findings are compatible with previous hysterectomy. Coronal T1-weighted images demonstrate preservation of fat in the neural foramina. There is appropria te T1 marrow signal intensity of the sacrum and bony pelvis. Visualized hips also have appropriate signal intensity. No abnormal enhancement in the osseous structures on the postcontrast images. There is T1 hypointensity with associated edema and enhancement involving the soft tissues overlying the coccyx. There is a corresponding finding on recent CT. There does appear to be T2 hyperintense focus with associated peripheral enhancement involving the right paramedian gluteal soft tissues matthew uring 1 cm compatible with a small perirectal/soft tissue abscess. There is a similar finding left paramedian in location measuring 0.6 cm. Fat saturated images demonstrate subtle enhancement involving the tip of the coccyx suggesting a comp onent of osteomyelitis. IMPRESSION: 1. Perirectal/gluteal soft tissue phlegmon and microabscesses as described above. 2. 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 Transcribed Date/Time: 03/02/2020 2:19 PM
--- NOTE | 2020-03-02 14:28 | MRI ---
MRI LUMBAR SPINE WITH AND WITHOUT CONTRAST: DATE: 03/02/2020 HISTORY: 84-year-old female with low back pain COMPARISON: None TECHNIQUE: Multiple sequences obtained in axial and sagittal planes, pre and post IV injection of gadolinium-bas ed contrast agent. FINDINGS: 5 lumbar-type vertebrae. Mild left-lateral curvature centered at mid L-spine. Mild right-lateral curv ature at lower lumbar spine. Conus medullaris terminates at L2.. T12-L1:Hemangioma of bone at right side of T12 vertebral body. Minimal disc bulge. Otherwise normal. L1-2:Minimal disc bulge. Otherwise normal. L2-3:Mild disc bulge. Disc space maintained. No high-grade neural foraminal stenosis. No central spin al canal stenosis. Mild bilateral facet DJD with small facet joint effusions. L3-4:Mild disc space narrowing. Moderate sized diffuse disc bulge. Moderate ligamentum flavum thicken ing. Bilateral facet joint effusion. Moderate bilateral facet DJD. Mild to moderate bilateral neural foraminal stenosis. Moderate central spinal canal and lateral recess stenosis bilaterally. L4-5:Severe bilateral facet DJD causes grade 1 anterolisthesis of L4 on L5. Focal deep central depres jung of L5 superior endplate probably representing a large Schmorl's node. 1 cm round focal enhancing lesion with heterogeneous T2 signal in the L5 vertebral body, abutting the posterior edge o f the Schmorl's node. This is nonspecific, but could represent a second, acute or subacute component of Schmorl's node. Prominent diffuse disc bulge. Left anterior inferior L4 vertebral body h emangioma of bone with adjacent small Schmorl's node. Moderate bilateral neural foraminal stenosis. High-grade lateral recess stenosis bilaterally. Moderate central spinal canal stenosis. L5-S1:Diffuse disc bulge. Asymmetrically larger left asymmetrical lateral and far lateral disc bulge- osteophyte complex causes mild to moderate left neural foraminal stenosis. No right neural foraminal stenosis. Superimposed small focal central disc herniation with annular fissure indents miguel tral aspect of thecal sac. The left paracentral component of this abuts the left S1 nerve root. No central spinal canal stenosis. IMPRESSION: 1) moderate lumbar spondylosis, with severe degenerative disc disease at L4-5, and mild and moderate degenerative disc disease at L2-3, L3-4, and L5-S1. 2) grade 1 anterolisthesis of L4 on L5 due to severe bilateral facet osteoarthrosis at L4-5. This res ults in severe lateral recess stenosis bilaterally and moderate central spinal canal stenosis.
== END 2020-03-02 15:15 | disposition home or self-care (01) ==
LOC: SDC/OP 09:46 → EDSTATUS 12:00 → SDC/OP 15:15
PROVIDERS: ATTEND Specialist
DX: M53.3 Sacrococcygeal disorders, not elsewhere classified (principal); M46.28 Osteomyelitis of vertebra, sacral and sacrococcygeal region; M47.816 Spondylosis without myelopathy or radiculopathy, lumbar region; M51.36 Other intervertebral disc degeneration, lumbar region; M51.37 Other intervertebral disc degeneration, lumbosacral region; M48.061 Spinal stenosis, lumbar region without neurogenic claudication; I10 Essential (primary) hypertension; E11.9 Type 2 diabetes mellitus without complications; K59.00 Constipation, unspecified; Z79.82 Long term (current) use of aspirin; Z79.84 Long term (current) use of oral hypoglycemic drugs; Z79.899 Other long term (current) drug therapy; Z88.2 Allergy status to sulfonamides; Z91.041 Radiographic dye allergy status
CPT/HCPCS: 72158; 72197; A9579; J2001; J2405; J2704; J3010

== ENCOUNTER 2020-03-12 11:38 | Inpatient (IN) | payer MEDICARE, OTHER ==
[2020-03-12 12:47] VITALS: BMI 24.5
[2020-03-12] MEDS: HYDROcodone/Acetaminophen 5/325 mg Tablet PO PRN ×3 (13:01→22:04)
[2020-03-12] MEDS: Vancomycin 1 GM in Premix Bag 1 BAG IVPB SCH (13:14)
[2020-03-12] MEDS: Sodium Chloride 0.9% 1,000 ML IV SCH (13:30)
[2020-03-12] MEDS: metroNIDAZOLE 500 MG in Premix Bag 1 BAG IVPB SCH ×2 (14:48→20:07)
[2020-03-12] MEDS ORDERED: Magnesium Citrate 300 ML BOT PO PRN (15:27)
[2020-03-12] MEDS ORDERED: Lorazepam 1 MG TAB PO PRN (16:12)
--- NOTE | 2020-03-12 16:12 | CON ---
DATE OF CONSULTATION: 03/12/2020 REASON FOR CONSULTATION: Perirectal abscess with coccygeal osteomyelitis. HISTORY OF PRESENT ILLNESS: An 84-year-old with history of type 2 diabetes and hypertension, who about 2 months before admission developed severe constipation. She ascribes it to the initiation of a new diabetes treatment with injectable medication. She was basically taking laxatives daily to be able to have a bowel movement. Of late, she was using phosphate compounds as laxatives. Anyways, she started noticing pain in the coccygeal area and was referred to Dr. Perry. She had abdomen and pelvis CT on 02/11, which demonstrated constipation, but no obstruction and no lymphadenopathy. There was an indeterminate superior endplate fracture of L5, but no other findings of significance. This was a noncontrast study. In the study, it has described a mild stranding of the fat adjacent to the tip of the coccyx extending posteriorly and superiorly with mild degree of inflammatory change in this region. The MRI showed much clear inflammatory changes with evidence of perirectal and gluteal soft tissue phlegmon and micro abscesses, measuring about 1 cm and another one 0.6 cm, and then the obvious component of osteomyelitis of the coccygeal area. The patient in the clinic was having severe pain. She could not sit flat on the examining table. She had to sit on one side or the other in the gluteal area. She was in obvious distress from that, had been experiencing sweats and chills, but did not measure her temperature. No headaches. No shortness of breath or cough. She had some abdominal pain, particularly when she went to have a bowel movement. She has quite a bit of pain during the movements in the rectal area. No joint symptoms. No skin disorder. No neurological symptoms. PAST MEDICAL HISTORY: Includes: 1. Type 2 diabetes. 2. Hypertension. 3. Prior TIA x2. 4. Cholecystectomy. 5. Hysterectomy. SOCIAL HISTORY: Never smoker. Lives with family, including the spouse and daughter. No alcoholic beverage use. ALLERGIES: IODINE AND SULFA DRUGS. MEDICATIONS: Include: 1. Januvia. 2. Lovastatin. 3. Lisinopril. 4. Verapamil. 5. Metformin. 6. Aspirin. 7. Colace. FAMILY HISTORY: Noncontributory. PHYSICAL EXAMINATION: VITAL SIGNS: Temperature 98.5, BP 130/60, pulse 70, respirations 18, and O2 saturation 96. SKIN: Not remarkable. The patient has no lymphadenopathy. HEENT: Ocular movements conjugate. Oral cavity normal. NECK: Supple. LUNGS: Symmetric, clear breath sounds. HEART: S1 and S2, regular rate. ABDOMEN: Soft with mild tenderness in the left and right lower quadrants. No bladder distention. No ascites or organomegaly. Perirectal area was very painful and could not perform a rectal exam and no drainage was noticed. EXTREMITIES: She moves extremities with limitations and imposed by the coccygeal pain. She has no edema. Pulses are 1+ in dorsalis pedis. NEUROLOGIC: She is awake and oriented, follows commands. Speech appears to be normal. LABORATORY DATA: The labs are pending at the moment. The previous laboratory results with white cell count 10.1 in February with hemoglobin 12 and platelets 225 with 61% neutrophils and 28% bands. The chemistry with glucose 166, creatinine 0.67. COVID was negative on 02/27. ASSESSMENT: 1. Type 2 diabetes. 2. Perirectal abscess with compromise of the coccyx with osteomyelitis. PLAN: The patient will need broad-spectrum antimicrobial coverage, geared towards the bowel sarah. Zosyn will be acceptable and surgical consultation, probably will need I and D of the perirectal abscess. Cultures submitted and then protracted antimicrobial therapy to manage the coccygeal inflammatory changes. Endoscopy to eval for malignancy and IBD will be needed eventually. Job ID: [id number] [facility]
[2020-03-12] MEDS ORDERED: Ibuprofen 200 MG TAB PO SCH (17:00)
[2020-03-12] MEDS: metFORMIN 500 MG TAB PO SCH (17:30)
[2020-03-12] MEDS ORDERED: Dextrose 50% Abboject 50 ML SYRINGE SLOW IVP PRN (17:35)
[2020-03-12] MEDS ORDERED: HumaLOG 300 UNITS/3 ML VIAL SC PRN (17:35)
[2020-03-12] MEDS ORDERED: Dextrose 5% in Water 1,000 ML IV PRN (17:35)
--- NOTE | 2020-03-12 18:28 | PDOC.HHP ---
Hospitalist HPI - History of Present Illness pain with defecation History of Present Illness: 84yo F w/ MHx of T2DM, HTN, TIA x 2 presents for pain on defecation. Started 2 month ago, after insulin regimen was changed and she developed constipation. At baseline, used to have daily bowel movements but after the change in regimen, started having bowel movements about every 4 days, hard, requiring significant exertion, that over time reuslted in signficant pain on defecation. Was treated as outpatient with bowel regimens that she took PRN constipation every 4 days, but pain persisted. She underwent CT abd that showed constipation and more recently, MRI that showed perirectal abscess and coccygeal osteomyelitis, so was directly admitted on encounter, lying in bed comfortably. In addition to abovementioned, endorses diffuse abdominal pain as she approaches defecation. Denies fever, chills, night sweats, fatigue, weight loss, n/v, hematochezia, melena, pelvic trauma Hospitalist ROS - Review of Systems Constitutional: denies: fever, chills, sweats, weakness, malaise, other Respiratory: denies: cough, dry, shortness of breath, hemoptysis, SOB with excertion, pleuritic pain, sputum, wheezing, other Cardiovascular: denies: chest pain, palpitations, orthopnea, paroxysmal noc. dyspnea, edema, light headedness, other Gastrointestinal: denies: nausea, vomiting, abdominal pain, diarrhea, constipation, melena, hematochezia, other Genitourinary: denies: dysuria, frequency, incontinence, hematuria, retention, other - Medication Medications: Active Medications Generic Name Dose Route Start Last Admin Trade Name Opal PRN Reason Stop Dose Admin Hydrocodone Bitart/Acetaminophen 1 tab 03/12/20 12:05 03/12/20 17:32 [place] 5/325 PO 1 tab Q4H PRN Administration Moderate Pain (4-6) Vancomycin HCl 1 gm/ Device 200 mls @ 200 mls/hr 03/12/20 13:00 03/12/20 13: 14 IVPB 200 mls 0100,1300 LELO Administration Metronidazole 500 mg/ Device 100 mls @ 100 mls/hr 03/12/20 14:00 03/12/20 14: 48 IVPB 100 mls Q8HR LELO Administration Sodium Chloride 1,000 mls @ 100 mls/hr 03/12/20 18:00 03/12/20 13:30 Normal Saline 0.9% IV 1,000 mls .Q10H LELO Administration Metformin HCl 1,000 mg 03/12/20 17:00 03/12/20 17:30 Glucophage PO 1,000 mg BID- LELO Administration Hospitalist History - Past Medical History Source: patient, old records (PAST MEDICAL HISTORY: Includes: 1. Type 2 diabetes. 2. Hypertension. 3. Prior TIA x2. 4. Cholecystectomy. 5. Hysterectomy. Sx: no smoking, drinking alcohol, or recreational drugs Surgeries : hysterectomy, , gallbladder removal, kidney stones ALLERGIES: IODINE AND SULFA DRUGS. MEDICATIONS: Include: 1. Januvia. 2. Lovastatin. 3. Lisinopril. 4. Verapamil. 5. Metformin. 6. Aspirin. 7. Colace. Fhx: heart disease in father, diabetes in mother) - Exam General Appearance: NAD, awake alert General - other findings: emaciated Eye: PERRL ENT: normocephalic atraumatic Neck: no JVD Heart: RRR, no murmur, no gallops, no rubs Respiratory: CTAB, no wheezes, no rales, no ronchi Gastrointestinal: soft, non-tender, non-distended Gastrointestinal - other findings: left perigluteal fluctuating mass about 5cm in diameter; external nonbleed Psychiatric: normal affect, normal behavior, A&O x 3 Hospitalist H&P A/P - Problem (1) Perirectal abscess Code(s): K61.1 - RECTAL ABSCESS Status: Acute (2) Acute osteomyelitis of coccyx Code(s): M86.18 - OTHER ACUTE OSTEOMYELITIS, OTHER SITE Status: Acute (3) Type 2 diabetes mellitus Status: Acute (4) Hypertension Code(s): I10 - ESSENTIAL (PRIMARY) HYPERTENSION Status: Acute - Plan Plan: #perigluteal abscess #coccyeal osteomyelitis -started vanc, ceftriaxone, metro; pending ID evaluation defer adjustments to ID -senna, docusate, miralax, and IVF to facilitate soft bowel movements; pain control on defecation -surgery consulted for possible I&D #T2DM -mild correction sliding scale -stopped home medications; will reassess and modify on discharge #Hypertension resumed home meds Dispo/PPx: full code GI PPx: no Ix DVT PPx: lovenox
[2020-03-12] MEDS: Senokot S 8.6-50 MG TAB PO SCH (20:06)
[2020-03-12] MEDS: Atorvastatin Calcium 10 MG TAB PO SCH (20:06)
[2020-03-12] MEDS ORDERED: Docusate 100 MG CAP PO SCH (21:00)
[2020-03-12] MEDS ORDERED: Citrucel 500 MG TAB PO SCH (21:00)
[2020-03-13] MEDS: Vancomycin 1 GM in Premix Bag 1 BAG IVPB SCH (00:36)
[2020-03-13] MEDS: HYDROcodone/Acetaminophen 5/325 mg Tablet PO PRN ×4 (02:05→19:38)
[2020-03-13] MEDS: Sodium Chloride 0.9% 1,000 ML IV SCH ×2 (02:06→14:26)
[2020-03-13 04:09] LABS: #Basophils 0.1 thou/uL (0.0-0.2); #Eosinphils 0.1 thou/uL (0.0-0.7); #Lymphocytes 2.8 thou/uL (1.20-3.40); #Monocytes 0.6 thou/uL (0.11-0.59); #Neutrophils 3.6 thou/uL (1.40-6.50); %Eosinophils 1.3 % (0.0-10.0); %Lymphocytes 38.7 % (21.0-51.0); %Monocytes 8.9 % (0.0-10.0); %Neutrophils 50.1 % (42.0-75.0); Hemoglobin 10.1 g/dL (12.0-16.0); Mean Corpuscular HGB CONC 32.1 g/dL (32.0-36.0); Mean Corpuscular Hemoglobin 30.5 pg (27.0-31.0); Mean Corpuscular Volume 94.9 fL (78.0-98.0); Mean Platelet Volume 7.6 fL (7.4-10.4); Platelet Count 206 thou/uL (130-400); RBC Distribution Width 12.2 % (11.5-14.5); White Blood Cell (WBC) Count 7.1 thou/uL (4.8-10.8)
[2020-03-13 04:30] LABS: Anion Gap 9 mmol/L (10-20); BUN (Urea Nitrogen) 10 mg/dL (9.8-20.1); Calc. Creatinine Clearance 67 mL/min (70-130); Calcium 8.7 mg/dL (7.8-10.44); Carbon Dioxide 30 mmol/L (23-31); Chloride 104 mmol/L (98-107); Estimated GFR-MDRD 87; Glucose 118 mg/dL (83-110); Potassium 3.9 mmol/L (3.5-5.1); Sodium 139 mmol/L (136-145)
[2020-03-13] MEDS: metroNIDAZOLE 500 MG in Premix Bag 1 BAG IVPB SCH (05:51)
[2020-03-13] MEDS: Senokot S 8.6-50 MG TAB PO SCH ×2 (08:54→19:38)
[2020-03-13] MEDS: Enoxaparin Sodium 30 MG/0.3 ML SYRINGE SC SCH (08:55)
[2020-03-13] MEDS: Lisinopril 20 MG TAB PO SCH (08:55)
[2020-03-13] MEDS: Aspirin 81 mg Enteric Coated Tablet PO SCH (08:55)
[2020-03-13] MEDS: metFORMIN 500 MG TAB PO SCH ×2 (08:56→17:40)
[2020-03-13] MEDS ORDERED: Polyethylene Glycol 3350 17 GM Packet PO SCH (09:00)
[2020-03-13] MEDS ORDERED: Meloxicam 7.5 MG TAB PO SCH (09:00)
[2020-03-13] MEDS ORDERED: Alogliptin 25 MG TAB PO SCH (09:00)
--- NOTE | 2020-03-13 11:59 | PDOC.HOSPP ---
- Subjective Encounter Date: 03/13/20 Encounter Time: 09:00 Subjective: no overnight events. this morning, feels well and has no complaints. no bowel movements. pending evaluation by surgery - Objective Vital Signs & Weight: Vital Signs (12 hours) Temp Pulse Resp BP Pulse Ox 03/13/20 11:15 97.5 F L 60 16 136/61 99 03/13/20 08:00 99 03/13/20 07:41 97.4 F L 61 18 140/65 99 03/13/20 04:14 97.8 F 68 18 124/64 99 Weight Weight 143 lb 4.8 oz I&O: 03/12/20 03/13/20 03/14/20 06:59 06:59 06:59 Intake Total 2180 Output Total 900 Balance 1280 Result Diagrams: 03/13/20 03:30 03/13/20 03:30 Additional Labs: Accuchecks 03/13/20 03/12/20 03/12/20 11:16 20:08 16:45 POC Glucose 118 H 128 H 107 Hospitalist ROS - Review of Systems Constitutional: denies: fever, chills, sweats, weakness, malaise, other Respiratory: denies: cough, dry, shortness of breath, hemoptysis, SOB with excertion, pleuritic pain, sputum, wheezing, other Cardiovascular: denies: chest pain, palpitations, orthopnea, paroxysmal noc. dyspnea, edema, light headedness, other Gastrointestinal: denies: nausea, vomiting, abdominal pain, diarrhea, constipation, melena, hematochezia, other - Medication Medications: Active Medications Generic Name Dose Route Start Last Admin Trade Name Freq PRN Reason Stop Dose Admin Hydrocodone Bitart/Acetaminophen 1 tab 03/12/20 12:05 03/13/20 10:49 [place] 5/325 PO 1 tab Q4H PRN Administration Moderate Pain (4-6) Aspirin 81 mg 03/13/20 09:00 03/13/20 08:55 Ecotrin PO Not Given DAILY LELO Atorvastatin Calcium 10 mg 03/12/20 21:00 03/12/20 20:06 Lipitor PO 10 mg HS LELO Administration Enoxaparin Sodium 30 mg 03/13/20 09:00 03/13/20 08:55 Lovenox SC Not Given 0900 LELO Sodium Chloride 1,000 mls @ 100 mls/hr 03/12/20 18:00 03/13/20 02:06 Normal Saline 0.9% IV 1,000 mls .Q10H LELO Administration Lisinopril 20 mg 03/13/20 09:00 03/13/20 08:55 Zestril PO Not Given QAM LELO Metformin HCl 1,000 mg 03/12/20 17:00 03/13/20 08:56 Glucophage PO Not Given BID-WM LELO Polyethylene Glycol 17 gm 03/13/20 09:00 03/13/20 08:55 Miralax PO Not Given DAILY LELO Senna/Docusate Sodium 2 tab 03/12/20 21:00 03/13/20 08:54 Senokot S PO 2 tab BID LELO Administration Verapamil HCl 240 mg 03/13/20 09:00 03/13/20 08:55 Calan Sr PO Not Given QAM LELO - Exam General Appearance: NAD, awake alert ENT: normocephalic atraumatic Heart: RRR, no murmur, no gallops, no rubs Respiratory: CTAB, no wheezes, no rales, no ronchi Gastrointestinal: soft, non-tender, non-distended, normal bowel sounds Extremities: no edema Psychiatric: normal affect, normal behavior, A&O x 3 Hosp A/P (1) Perirectal abscess Code(s): K61.1 - RECTAL ABSCESS Status: Acute (2) Acute osteomyelitis of coccyx Code(s): M86.18 - OTHER ACUTE OSTEOMYELITIS, OTHER SITE Status: Acute (3) Type 2 diabetes mellitus Status: Acute (4) Hypertension Code(s): I10 - ESSENTIAL (PRIMARY) HYPERTENSION Status: Acute - Plan (1) Perirectal abscess Code(s): K61.1 - RECTAL ABSCESS Status: Acute (2) Acute osteomyelitis of coccyx Code(s): M86.18 - OTHER ACUTE OSTEOMYELITIS, OTHER SITE Status: Acute (3) Type 2 diabetes mellitus Status: Acute (4) Hypertension Code(s): I10 - ESSENTIAL (PRIMARY) HYPERTENSION Status: Acute - Plan Plan: #perigluteal abscess #coccyeal osteomyelitis -changed antibiotics to zosyn as per ID recs -pending surgery eval -continue bowel regimen #T2DM -mild correction sliding scale and metformin; well controlled #Hypertension well controlled Dispo/PPx: full code GI PPx: no Ix DVT PPx: lovenox ELOS: 1-2 nights
[2020-03-13] MEDS ORDERED: cefTRIAXone\\ROCEPHIN 1 GM in Sodium Chloride 0.9% 100 ML IVPB SCH (12:00)
[2020-03-13] MEDS: Piperacillin/Tazobactam 3.375 GM in Sodium Chloride 0.9% 100 ML IVPB SCH ×2 (12:20→17:40)
[2020-03-13] MEDS: Bisacodyl 5 MG TAB PO SCH ×2 (15:26→19:38)
--- NOTE | 2020-03-13 19:29 | CON ---
DATE OF CONSULTATION: HISTORY OF PRESENT ILLNESS: Ana Maria Ramírez is an 84-year-old female, whom I saw in my office. The patient complained of chronic low back pain, pain in her coccyx area, and constipation. She reports having a colonoscopy many years ago. I examined her and rectal exam was unremarkable. Perianal exam was unremarkable. Presacral area was unremarkable. I referred her for abdominopelvic CAT scan on 02/12/2020, revealing significant constipation and some inflammatory changes near the tip of the coccyx. The patient then was referred on 03/02/2020, for lumbar spine and a pelvic MRI. This revealed minimal disk bulge at T12-L1, some lumbar curvature spine, minimal disk bulge at L1-L2, mild disk bulge at L2-L3, mild disk space narrowing at L3-L4, moderate size disk bulge, diffuse, some joint effusion, DJD of the facets, L4-L5 severe bilateral facet DJD with anterior listhesis and L5 superior endplate central depression with a large Schmorl's node, prominent disk bulge, left anterior inferior L5-S1 disk bulge. MRI of the pelvis revealed perirectal gluteal soft tissue phlegmon, microabscesses as described, osteomyelitis at the tip of the coccyx. When I examined her in the office, I could not appreciate any inflammatory changes and referred to Dr. Meneses and Neurosurgery. The patient was admitted by Dr. Meneses. I was asked to see her regarding her perirectal abscess. The patient reports that she has not had any fever. She still complains of pain in the area. Height is 5 feet and 4 inches, weight 143 pounds, 24 BMI. Temperature 97.4 degrees. White count 7 and hemoglobin 10.1. COVID negative on 02/28/2020. Repeat exam reveals that she has some mild tenderness at tip of the coccyx, between the tip of the coccyx and the anus, there are no noticeable skin changes. There is no evidence of induration, inflammation, cellulitis, perirectal or perianal. Rectal exam again reveals absence of any masses or tenderness. ASSESSMENT AND PLAN: Physical exam does not reveal any thing for me to drain. I cannot appreciate any changes that need surgical attention to. MRI and CAT scan reveals some soft tissue changes, but this is not appreciated clinically. At this point, I do not have anything to offer as far as surgical drainage and would defer treatment to Infectious Disease. 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 Whether this can account for any of her pain, I am uncertain. Job ID: [id number]
[2020-03-13] MEDS: Atorvastatin Calcium 10 MG TAB PO SCH (19:38)
[2020-03-14] MEDS: Piperacillin/Tazobactam 3.375 GM in Sodium Chloride 0.9% 100 ML IVPB SCH ×5 (00:03→23:33)
[2020-03-14] MEDS: Sodium Chloride 0.9% 1,000 ML IV SCH ×3 (00:05→19:24)
[2020-03-14] MEDS: HYDROcodone/Acetaminophen 5/325 mg Tablet PO PRN ×4 (03:12→23:29)
[2020-03-14] MEDS ORDERED: Melatonin 3 MG TAB PO PRN (08:21)
[2020-03-14] MEDS: Enoxaparin Sodium 30 MG/0.3 ML SYRINGE SC SCH (08:45)
[2020-03-14] MEDS: Bisacodyl 5 MG TAB PO SCH ×3 (08:47→19:29)
[2020-03-14] MEDS: metFORMIN 500 MG TAB PO SCH ×3 (08:47→17:24)
[2020-03-14] MEDS: Senokot S 8.6-50 MG TAB PO SCH (08:47)
[2020-03-14] MEDS: Lisinopril 20 MG TAB PO SCH (08:47)
[2020-03-14] MEDS: Aspirin 81 mg Enteric Coated Tablet PO SCH (08:48)
--- NOTE | 2020-03-14 12:30 | PDOC.HOSPP ---
- Subjective Encounter Date: 03/14/20 Encounter Time: 08:00 Subjective: overnight, had large bowel movement and two smaller ones per nurse. This morning , pain improved but persists, especially with bowel movements. no other complaints - Objective Vital Signs & Weight: Vital Signs (12 hours) Temp Pulse Resp BP BP Pulse Ox 03/14/20 08:47 158/72 H 03/14/20 08:00 98.4 F 68 18 158/72 H 97 Weight Weight 143 lb I&O: 03/13/20 03/14/20 03/15/20 06:59 06:59 06:59 Intake Total 2180 240 Output Total 900 600 Balance 1280 -360 Result Diagrams: 03/13/20 03:30 03/13/20 03:30 Additional Labs: Accuchecks 03/14/20 03/14/20 03/13/20 11:03 04:57 20:17 POC Glucose 166 H 108 132 H 03/13/20 16:45 POC Glucose 129 H Hospitalist ROS - Review of Systems Constitutional: denies: fever, chills, sweats Respiratory: denies: cough, dry, shortness of breath Cardiovascular: denies: chest pain, palpitations, orthopnea, paroxysmal noc. dyspnea Gastrointestinal: denies: nausea, vomiting, abdominal pain - Medication Medications: Active Medications Generic Name Dose Route Start Last Admin Trade Name Freq PRN Reason Stop Dose Admin Hydrocodone Bitart/Acetaminophen 1 tab 03/12/20 12:05 03/14/20 10:10 [place] 5/325 PO 1 tab Q4H PRN Administration Moderate Pain (4-6) Aspirin 81 mg 03/13/20 09:00 03/14/20 08:48 Ecotrin PO 81 mg DAILY LELO Administration Atorvastatin Calcium 10 mg 03/12/20 21:00 03/13/20 19:38 Lipitor PO 10 mg HS LELO Administration Bisacodyl 10 mg 03/13/20 15:00 03/14/20 08:47 Dulcolax PO 10 mg TID LELO Administration Enoxaparin Sodium 30 mg 03/13/20 09:00 03/14/20 08:45 Lovenox SC 30 mg 0900 LELO Administration Sodium Chloride 1,000 mls @ 100 mls/hr 03/12/20 18:00 03/14/20 00:05 Normal Saline 0.9% IV 1,000 mls .Q10H LELO Administration Piperacillin Sod/Tazobactam 100 mls @ 200 mls/hr 03/13/20 12:00 03/14/20 05: 12 Sod 3.375 gm/ Sodium Chloride IVPB 100 mls Q6HR LELO Administration Lisinopril 20 mg 03/13/20 09:00 03/14/20 08:47 Zestril PO 20 mg QAM LELO Administration Metformin HCl 1,000 mg 03/12/20 17:00 03/14/20 08:47 Glucophage PO 1,000 mg BID-WM LELO Administration Senna/Docusate Sodium 2 tab 03/12/20 21:00 03/14/20 08:47 Senokot S PO 2 tab BID LELO Administration Sodium Chloride 10 ml 03/13/20 21:00 03/14/20 08:58 Flush - Normal Saline IVF 10 ml Q12HR LELO Administration Verapamil HCl 240 mg 03/13/20 09:00 03/14/20 08:48 Calan Sr PO 240 mg QAM LELO Administration - Exam General Appearance: NAD, awake alert Heart: RRR, no murmur, no gallops, no rubs Respiratory: CTAB, no wheezes, no rales, no ronchi Gastrointestinal: soft, non-tender, non-distended, normal bowel sounds Extremities: no edema Psychiatric: normal affect, normal behavior, A&O x 3 Hosp A/P (1) Perirectal abscess Code(s): K61.1 - RECTAL ABSCESS Status: Acute (2) Acute osteomyelitis of coccyx Code(s): M86.18 - OTHER ACUTE OSTEOMYELITIS, OTHER SITE Status: Acute (3) Type 2 diabetes mellitus Status: Acute (4) Hypertension Code(s): I10 - ESSENTIAL (PRIMARY) HYPERTENSION Status: Acute - Plan (1) Perirectal abscess Code(s): K61.1 - RECTAL ABSCESS Status: Acute (2) Acute osteomyelitis of coccyx Code(s): M86.18 - OTHER ACUTE OSTEOMYELITIS, OTHER SITE Status: Acute (3) Type 2 diabetes mellitus Status: Acute (4) Hypertension Code(s): I10 - ESSENTIAL (PRIMARY) HYPERTENSION Status: Acute - Plan Plan: #perigluteal abscess #coccyeal osteomyelitis -per surgery no drainable abscess; signed off -zosyn, consult GI per ID -stop senna, continue docusate and bisacodyl, fluids scheduled to facilitate small soft bowel movements #T2DM -mild correction sliding scale and metformin; well controlled #Hypertension well controlled Dispo/PPx: full code GI PPx: no Ix DVT PPx: lovenox ELOS: 1-2 nights
--- NOTE | 2020-03-14 13:25 | CON ---
DATE OF CONSULTATION: 03/14/2020 CHIEF COMPLAINT: Perirectal abscess or inflammation. HISTORY OF PRESENT ILLNESS: Ms. Ramírez is an 84-year-old woman, who developed pain around her coccyx around 6 weeks ago. At baseline, she has a bowel movement every day, but over the last 6 weeks, she only has a bowel movement if she takes magnesium citrate and has a bowel movement every 4 days with that. She has had no blood in the stool. She has had some lower periumbilical abdominal pain, that is pressure type, and relieves with passing flatus, which she believes is just gas pain that comes on around once per week or so. She has had no nausea or vomiting. No fever with this. During the workup of her coccyx pain, she saw Dr. Perry with General Surgery and Dr. Meneses with Infectious Disease. MRI of the pelvis suggests possible osteomyelitis of the coccyx with surrounding inflammation and question of microabscesses. Perirectal examination has not shown any signs of abscess or abnormality, and we are still ultimately trying to decide if this is an inflammatory or infectious process or arthritis. GI was consulted to help evaluate this further. The patient does report that she has colon polyps removed in the past on prior colonoscopies, but her last colonoscopy was over 10 years ago. She was told to repeat at a shorter interval, but states that she did not follow through. PAST MEDICAL HISTORY: Diabetes mellitus type 2, hypertension, and TIA. PAST SURGICAL HISTORY: Cholecystectomy, hysterectomy, colonoscopy, , and kidney stones. FAMILY HISTORY: Negative for GI malignancy. SOCIAL HISTORY: No alcohol, tobacco or drugs. MEDICATIONS: At home, prior to admission, 1. Lisinopril. 2. Metformin. 3. Lovastatin. 4. Aspirin. 5. Januvia. 6. Verapamil. 7. Meloxicam. 8. Ibuprofen. 9. Citrucel. 10. Docusate. 11. Lorazepam. 12. Magnesium citrate. REVIEW OF SYSTEMS: Negative x10 systems reviewed except as stated in the history of present illness. PHYSICAL EXAMINATION: VITAL SIGNS: Temperature 98.4, blood pressure 158/72, and pulse 68. GENERAL: She is in no acute distress. Alert and oriented x3. HEENT: Eyes have no scleral icterus. Oropharynx is clear without lesions. No cervical or supraclavicular lymphadenopathy. LUNGS: Clear to auscultation bilaterally. HEART: Regular rate and rhythm without murmur. ABDOMEN: Soft, nontender, and nondistended. Bowel sounds are present. EXTREMITIES: No lower extremity edema. RECTAL: External hemorrhoid/skin tag. There is no thrombosis or hemorrhoid. She has no signs of induration or an apparent abscess or fistula around on perianal exam. Digital exam is unremarkable with no stool in the rectal vault. She does have some tenderness over coccyx to palpation. LABORATORY DATA: White blood cell count 7.1, hemoglobin 10.1, and platelets 206. Creatinine 0.65. IMPRESSION: 1. Coccyx pain. MRI suggests there is osteomyelitis with surrounding microabscesses or inflammatory process. She has no fever. No elevation of the white count. On perianal exam, she does have an external hemorrhoid, but no evidence of fistula or induration or inflammation or fissure. We will plan to follow through with colonoscopy to rule out any rectal inflammatory process that could be leading to these findings. Ultimately, management obviously will be markedly different for arthritis versus osteomyelitis, and hopefully, we can help sort that out. She has been evaluated by General Surgery and Infectious Disease at this point. 2. Personal history of colon polyps. Her last colonoscopy was over 10 years ago. 3. Constipation. She was having a bowel movement every other day at baseline, but since onset of this pain, she is having a bowel movement every 4 days and then only with magnesium citrate. This could be the source for discomfort as well. RECOMMENDATIONS: 1. Clear liquid diet today with bowel prep this evening and colonoscopy tomorrow. 2. Start MiraLAX twice daily. If that is inadequate, then we can adjust laxatives further as an outpatient and potentially add Linzess versus other medical treatment. Job ID: [id number]
--- NOTE | 2020-03-14 15:33 | PRG ---
DATE OF SERVICE: 03/14/2020 SUBJECTIVE: Ms. Ramírez continues about the same, maybe a little improvement. No shortness of breath, headaches. No abdominal pain. OBJECTIVE: VITAL SIGNS: Normal. LUNGS: Clear. HEART: S1, S2. Regular rate. ABDOMEN: Soft, not distended. Inspection of the perirectal area and rectal exam does not reveal inflammatory changes. I spoke with the radiologist, Dr. Trevino, and Dr. Ariel Pérez and they concur with the presence of the abnormalities noted on MRI of the pelvis including the perirectal abscess and coccyx osteomyelitis ASSESSMENT AND DISCUSSION: Type 2 diabetes, hypertension, perirectal abscess with coccygeal osteomyelitis. We will have Dr. Canela take a look at the patient. She was scheduled for colonoscopy today, but had to be admitted, so we will see if he can do the procedure tomorrow. We will check her for COVID and verify why she is having this findings associated with severe constipation. Job ID: [id number] MTDD
[2020-03-14] MEDS ORDERED: GoLYTELY 4,000 ml Bottle PO SCH (16:00)
[2020-03-14] MEDS ORDERED: metFORMIN 500 MG TAB PO SCH (17:30)
[2020-03-14] MEDS: Atorvastatin Calcium 10 MG TAB PO SCH (19:23)
[2020-03-14] MEDS: Docusate 100 MG CAP PO SCH (19:29)
[2020-03-15] MEDS: Piperacillin/Tazobactam 3.375 GM in Sodium Chloride 0.9% 100 ML IVPB SCH ×4 (05:36→23:40)
[2020-03-15] MEDS: Enoxaparin Sodium 30 MG/0.3 ML SYRINGE SC SCH (08:30)
[2020-03-15] MEDS: Lisinopril 20 MG TAB PO SCH (08:30)
[2020-03-15] MEDS: Bisacodyl 5 MG TAB PO SCH ×3 (08:30→20:39)
[2020-03-15] MEDS: Aspirin 81 mg Enteric Coated Tablet PO SCH (08:30)
[2020-03-15] MEDS: Docusate 100 MG CAP PO SCH ×2 (08:30→20:39)
[2020-03-15] MEDS: metFORMIN 500 MG TAB PO SCH ×2 (08:30→16:29)
[2020-03-15] MEDS: Polyethylene Glycol 3350 17 GM Packet PO SCH ×2 (08:30)
[2020-03-15] MEDS: Sodium Chloride 0.9% 1,000 ML IV SCH ×2 (10:29→19:26)
[2020-03-15] MEDS ORDERED: Promethazine HCl 25 MG/ML VIAL IM PRN (11:04)
[2020-03-15] MEDS ORDERED: Promethazine HCl 25 MG/ML VIAL SLOW IVP PRN (11:04)
[2020-03-15] MEDS ORDERED: Ondansetron HCl/PF 4 MG/2 ML Vial IVP PRN (11:04)
[2020-03-15] MEDS ORDERED: PROPOFOL 200 MG/20 ML VIAL ONE (11:49)
[2020-03-15] MEDS ORDERED: Lidocaine 1% PF 5 ML VIAL ONE (11:49)
--- NOTE | 2020-03-15 12:43 | OP ---
DATE OF PROCEDURE: 03/15/2020 PROCEDURE PERFORMED: Colonoscopy with polypectomy. INDICATIONS FOR PROCEDURE: Abnormal GI imaging showing abscess formation around the level of the coccyx, concerning for an intraluminal GI process. DESCRIPTION OF PROCEDURE: After the risks and benefits of the procedure were explained to the patient including risks of bleeding, infection, perforation, reactions to anesthesia, aspiration and/or pain, informed consent was obtained. The patient was then taken to the endoscopy suite where she was maneuvered into the left lateral decubitus position followed by introduction of deep sedation via propofol and anesthesia support. Once adequate sedation was achieved, the standard colonoscope was introduced into the rectum and advanced to the terminal ileum with some difficulty, requiring manual abdominal pressure to facilitate passage of the scope. The quality of the prep was fair to poor with moderate amount of semi-solid stool seen throughout the entire colon, that was only minimally amenable to irrigation and suctioning. The patient tolerated the procedure well with no immediate perioperative complications. On conclusion of the procedure, all equipment was removed from the patient and she was transferred to PACU in satisfactory condition. FINDINGS: Digital rectal exam: Small external hemorrhoids were seen on external examination. There was no evidence of skin breakdown or fistulas on examination of the perianal skin. Colon findings: Normal-appearing mucosa was seen within the terminal ileum. There was a [id number] amount of retained semi-solid stool seen throughout the entire colon, limiting visualization of the colonic mucosa. Of the mucosa seen (approximately 70% to 80%), normal-appearing mucosa was seen at the appendiceal orifice and at the ileocecal valve. Three polyps, measuring 2 to 5 mm in size, were seen in the cecum and completely removed with cold snare polypectomy. They were retrieved and placed in a specimen jar for further evaluation. Normal-appearing mucosa was then seen in the ascending, transverse, and descending colons. A moderate amount of small and large diverticula without evidence of erythema or inflammation was seen in the sigmoid colon. Normal-appearing mucosa was then seen in the rectum with internal hemorrhoids seen on rectal retroflexion. IMPRESSION: 1. [id number] colonic preparation with inadequate visualization of the colonic mucosa (lesions less than 1 cm in size could have been missed). 2. Three cecal polyps, measuring 2 to 5 mm in size, status post cold snare polypectomy. 3. Moderate sigmoid diverticulosis without evidence of diverticulitis. 4. Internal and external hemorrhoids. 5. There was no intraluminal process contributing to the imaging findings/coccygeal abscesses. RECOMMENDATIONS: 1. We will follow up on the biopsy/polypectomy results with repeat colonoscopy recommended within the next 6 to 12 months based on the poor colonic preparation today. 2. Recommend a higher fiber diet given the presence of prior diverticulosis and hemorrhoids. 3. Pain control per primary team. 4. Given the lack of intraluminal process, continuation of antibiotics for these abscesses is appropriate. Would defer to Surgical Service for any other possible interventions. We will sign off at this time. Please call with any questions. Job ID: [id number]
[2020-03-15] MEDS: HYDROcodone/Acetaminophen 5/325 mg Tablet PO PRN ×3 (15:13→23:38)
--- NOTE | 2020-03-15 20:31 | PDOC.HOSPP ---
- Subjective Encounter Date: 03/15/20 Encounter Time: 10:00 Subjective: no overnight events. Has undergone colonoscopy on polypectomy but no access to abscess. Has no complaints with exception of pain that is improving at site of perigluteal abscess. Pending PICC placement for a 6-week ABx treatment of abscess and osteomyelitis. - Objective Vital Signs & Weight: Vital Signs (12 hours) Temp Pulse Resp BP Pulse Ox 03/15/20 19:46 98.6 F 78 18 134/76 97 03/15/20 16:00 98.5 F 63 16 136/65 96 Weight Weight 143 lb I&O: 03/14/20 03/15/20 03/16/20 06:59 06:59 06:59 Intake Total 240 450 900 Output Total 600 1200 Balance -360 450 -300 Result Diagrams: 03/13/20 03:30 03/13/20 03:30 Additional Labs: Accuchecks 03/15/20 03/15/20 03/15/20 16:37 14:19 05:40 POC Glucose 144 H 128 H 94 03/14/20 20:57 POC Glucose 102 Hospitalist ROS - Review of Systems Constitutional: denies: fever, chills, sweats, weakness, malaise, other Respiratory: denies: cough, dry, shortness of breath, hemoptysis, SOB with excertion, pleuritic pain, sputum, wheezing, other Cardiovascular: denies: chest pain, palpitations, orthopnea, paroxysmal noc. dyspnea, edema, light headedness, other Gastrointestinal: denies: nausea, vomiting, abdominal pain, diarrhea, constipation, melena, hematochezia, other - Medication Medications: Active Medications Generic Name Dose Route Start Last Admin Trade Name Freq PRN Reason Stop Dose Admin Hydrocodone Bitart/Acetaminophen 1 tab 03/12/20 12:05 03/15/20 19:27 Hilliard 5/325 PO 1 tab Q4H PRN Administration Moderate Pain (4-6) Aspirin 81 mg 03/13/20 09:00 03/15/20 08:30 Ecotrin PO Not Given DAILY LELO Atorvastatin Calcium 10 mg 03/12/20 21:00 03/14/20 19:23 Lipitor PO 10 mg HS LELO Administration Bisacodyl 10 mg 03/13/20 15:00 03/15/20 15:12 Dulcolax PO 10 mg TID LELO Administration Docusate Sodium 100 mg 03/14/20 21:00 03/15/20 08:30 Colace PO Not Given BID LELO Enoxaparin Sodium 30 mg 03/13/20 09:00 03/15/20 08:30 Lovenox SC Not Given 0900 LELO Sodium Chloride 1,000 mls @ 100 mls/hr 03/12/20 18:00 03/15/20 19:26 Normal Saline 0.9% IV 1,000 mls .Q10H LELO Administration Piperacillin Sod/Tazobactam 100 mls @ 200 mls/hr 03/13/20 12:00 03/15/20 19: 26 Sod 3.375 gm/ Sodium Chloride IVPB 100 mls Q6HR LELO Administration Lisinopril 20 mg 03/13/20 09:00 03/15/20 08:30 Zestril PO Not Given QAM LELO Melatonin 3 mg 03/14/20 08:21 03/14/20 23:30 Melatonin PO 3 mg HS PRN Administration Insomnia Metformin HCl 1,000 mg 03/12/20 17:00 03/15/20 16:29 Glucophage PO 1,000 mg BID-WM LELO Administration Polyethylene Glycol 17 gm 03/15/20 09:00 03/15/20 08:30 Miralax PO Not Given DAILY LELO Polyethylene Glycol 17 gm 03/15/20 09:00 03/15/20 08:30 Miralax PO Not Given DAILY LELO Sodium Chloride 10 ml 03/13/20 21:00 03/15/20 14:12 Flush - Normal Saline IVF 10 ml Q12HR LELO Administration Verapamil HCl 240 mg 03/13/20 09:00 03/15/20 08:30 Calan Sr PO Not Given QAM LELO - Exam General Appearance: NAD, awake alert Neck: no JVD Heart: RRR, no murmur, no gallops, no rubs Respiratory: CTAB, no wheezes, no rales, no ronchi Gastrointestinal: soft, non-tender, non-distended, normal bowel sounds Extremities: no edema Skin - other findings: coccyeal tenderness with no overlying skin changes Psychiatric: normal affect, normal behavior, A&O x 3 Hosp A/P (1) Perirectal abscess Code(s): K61.1 - RECTAL ABSCESS Status: Acute (2) Acute osteomyelitis of coccyx Code(s): M86.18 - OTHER ACUTE OSTEOMYELITIS, OTHER SITE Status: Acute (3) Type 2 diabetes mellitus Status: Acute (4) Hypertension Code(s): I10 - ESSENTIAL (PRIMARY) HYPERTENSION Status: Acute - Plan (1) Perirectal abscess Code(s): K61.1 - RECTAL ABSCESS Status: Acute (2) Acute osteomyelitis of coccyx Code(s): M86.18 - OTHER ACUTE OSTEOMYELITIS, OTHER SITE Status: Acute (3) Type 2 diabetes mellitus Status: Acute (4) Hypertension Code(s): I10 - ESSENTIAL (PRIMARY) HYPERTENSION Status: Acute - Plan Plan: #perigluteal abscess #coccyeal osteomyelitis -pending PICC placement and Invanz treatment for 6 weeks #T2DM -mild correction sliding scale and metformin; well controlled #Hypertension well controlled Dispo/PPx: full code GI PPx: no Ix DVT PPx: lovenox ELOS: 1 night
[2020-03-15] MEDS: Atorvastatin Calcium 10 MG TAB PO SCH (22:05)
[2020-03-16] MEDS: Sodium Chloride 0.9% 1,000 ML IV SCH (05:50)
[2020-03-16] MEDS: HYDROcodone/Acetaminophen 5/325 mg Tablet PO PRN ×3 (05:51→14:24)
[2020-03-16] MEDS: Piperacillin/Tazobactam 3.375 GM in Sodium Chloride 0.9% 100 ML IVPB SCH (05:51)
[2020-03-16] MEDS: Lisinopril 20 MG TAB PO SCH (08:17)
[2020-03-16] MEDS: Polyethylene Glycol 3350 17 GM Packet PO SCH ×2 (08:17→08:20)
[2020-03-16] MEDS: Docusate 100 MG CAP PO SCH (08:17)
[2020-03-16] MEDS: Aspirin 81 mg Enteric Coated Tablet PO SCH (08:18)
[2020-03-16] MEDS: metFORMIN 500 MG TAB PO SCH ×2 (08:18→17:10)
[2020-03-16] MEDS: Enoxaparin Sodium 30 MG/0.3 ML SYRINGE SC SCH ×2 (08:19→08:23)
[2020-03-16] MEDS: Bisacodyl 5 MG TAB PO SCH ×2 (08:19→15:17)
[2020-03-16 08:20] VITALS: TEMP 98.3
[2020-03-16] MEDS ORDERED: Ertapenem 1 GM in Sodium Chloride 0.9% 100 ML IVPB SCH (09:30)
--- NOTE | 2020-03-16 12:55 | SPC ---
Left upper extremity PICC sonographic guided HISTORY: Sacral ulcer. Osteomyelitis. FINDINGS: After explaining the procedure and answering all questions, left upper arm was prepped and draped in usual sterile fashion. Sterile technique, buffered local anesthesia, sonographic guidance was carefully access the left basi lic vein. Standard technique was used to place the tip of a 5 Sinhala single lumen PICC so that its tip lies at the level of the superior vena cava. Catheter was flushed and secured externally. Patient tolerated the procedure well and was returned in unchanged condition. Fluoroscopy time 1.1 minutes. IMPRESSION : Left upper extremity PICC is ready for use.
[2020-03-16 16:18] VITALS: BP 148/70
--- NOTE | 2020-03-16 21:12 | DIS ---
DATE OF ADMISSION: 03/12/2020 DATE OF DISCHARGE: 03/16/2020 HISTORY OF PRESENT ILLNESS: Ms. Ramírez is an 84-year-old female with a medical history of type 2 diabetes, hypertension, TIA x2, who presented with pain on defecation for 2 months. She was diagnosed with diandra-gluteal abscess and coccygeal osteomyelitis. Surgery and Infectious Disease were consulted. Per Surgery, there was no drainable abscess. The patient was started on antibiotics and the pain improved. She also underwent a colonoscopy with polypectomy, but there was no access to the abscess via colonoscopy. On the day of discharge, she was placed with a PICC line and antibiotics were continued for an additional 16 days, pending followup appointment with Infectious Disease. On the day of discharge, she was hemodynamically stable and endorsed improved pain as well as pain on defecation. PHYSICAL EXAMINATION: VITAL SIGNS: Blood pressure 148/70, pulse 67, respiratory rate 17, saturating 98% on room air. GENERAL APPEARANCE: No apparent distress. Awake and alert, emaciated. NECK: No JVD. HEART: Regular rate and rhythm. No murmurs, gallops, or rubs. RESPIRATORY: Clear to auscultation bilaterally. No wheezing, rales, or rhonchi. GI: Soft, nontender, nondistended. Normal bowel sounds. EXTREMITIES: No edema. SKIN: Coccygeal tenderness with no overlying skin changes. PSYCHIATRIC: Proper mood and affect. Alert and oriented x3. MEDICATION LIST: New medications; 1. Docusate 100 mg b.i.d. 2. Melatonin 3 mg p.r.n. insomnia. 3. MiraLAX 17 g daily. 4. Ertapenem 1 g IVP through the PICC line q.24 hours. 5. Senna 17.2 mg p.o. b.i.d. 6. Bisacodyl 10 mg p.o. t.i.d. p.r.n. constipation if no bowel movement despite senna and docusate, MiraLAX combination, take bisacodyl instead of the senna. Continued medications; 1. Lovastatin. 2. Sitagliptin. 3. Metformin. 4. Aspirin. 5. Verapamil. 6. Lisinopril. 7. Meloxicam. 8. Lorazepam. Discontinued medications; 1. Magnesium citrate. 2. ibuprofen. Prior to discharge, both the patient and her family member were educated regarding IV pushes via the PICC line. Job ID: [id number] MTDD
== END 2020-03-16 17:10 | disposition home health service (06) | DRG 394 ==
LOC: ONC 11:50
PROVIDERS: ADMIT Internal Medicine; ATTEND Internal Medicine
PROC: 0DBH8ZZ Excision of Cecum, Via Natural or Artificial Opening Endoscopic (ICD-10-PCS; principal; 2020-03-15)
PROC: 02HV33Z Insertion of Infusion Device into Superior Vena Cava, Percutaneous Approach (ICD-10-PCS; 2020-03-16)
PROC: B518ZZA Fluoroscopy of Superior Vena Cava, Guidance (ICD-10-PCS; 2020-03-16)
DX: K61.1 Rectal abscess (principal); M86.18 Other acute osteomyelitis, other site; E11.69 Type 2 diabetes mellitus with other specified complication; Z11.59 Encounter for screening for other viral diseases; I10 Essential (primary) hypertension; G89.29 Other chronic pain; M54.5 Low back pain; K64.4 Residual hemorrhoidal skin tags; K57.30 Diverticulosis of large intestine without perforation or abscess without bleeding; K59.00 Constipation, unspecified; D12.0 Benign neoplasm of cecum; K64.8 Other hemorrhoids; Z86.73 Personal history of transient ischemic attack (TIA), and cerebral infarction without residual deficits; Z90.49 Acquired absence of other specified parts of digestive tract; Z90.710 Acquired absence of both cervix and uterus; Z88.2 Allergy status to sulfonamides; Z91.041 Radiographic dye allergy status; Z79.899 Other long term (current) drug therapy; Z79.82 Long term (current) use of aspirin; Z79.84 Long term (current) use of oral hypoglycemic drugs; Z87.442 Personal history of urinary calculi
CPT/HCPCS: 36415; 36416; 36569; 80048; 85025; 86140; 87635; 88305; C1751; J1335; J1650; J2543; J2704; J3370; J3490; U0002; U0003

== ENCOUNTER 2021-04-29 16:39 | Inpatient (IN) | payer MEDICARE, OTHER ==
[~2021-04-29 16:39] MED LIST changes: +Heparin 1,000 UNITS/ML VIAL ONE; -Iopamidol-370 76% 500 ML 1 ML ONE
[2021-04-29 20:42] VITALS: BMI 22.5
[2021-04-30] MEDS ORDERED: HYDROcodone/Acetaminophen 5/325 mg Tablet PO PRN (01:21)
[2021-04-30] MEDS ORDERED: Ondansetron ODT 4 MG TAB PO PRN (01:21)
[2021-04-30] MEDS ORDERED: Bisacodyl 5 MG TAB PO PRN (01:21)
[2021-04-30] MEDS ORDERED: Acetaminophen 325 MG TAB PO PRN (01:21)
[2021-04-30] MEDS ORDERED: Senokot S 8.6-50 MG TAB PO PRN (01:21)
[2021-04-30] MEDS ORDERED: HYDROcodone/Acetaminophen 10/325 mg Tablet PO PRN (01:21)
[2021-04-30] MEDS ORDERED: hydrALAZINE 20 MG/ML VIAL SLOW IVP PRN (01:51)
[2021-04-30] MEDS ORDERED: Dextrose 5% in Water 1,000 ML IV PRN (01:52)
[2021-04-30] MEDS ORDERED: HumaLOG 300 UNITS/3 ML VIAL SC PRN ×2 (01:52)
[2021-04-30] MEDS ORDERED: Dextrose 50% Abboject 50 ML SYRINGE SLOW IVP PRN (01:52)
[2021-04-30 04:22] LABS: #Basophils 0.1 thou/uL (0.0-0.2); #Eosinphils 0.2 thou/uL (0.0-0.7); #Lymphocytes 3.2 thou/uL (1.20-3.40); #Monocytes 0.7 thou/uL (0.11-0.59); #Neutrophils 3.6 thou/uL (1.40-6.50); %Basophils 1.2 % (0.0-1.0); %Eosinophils 2.7 % (0.0-10.0); %Lymphocytes 41.1 % (21.0-51.0); %Monocytes 8.9 % (0.0-10.0); %Neutrophils 46.1 % (42.0-75.0); Mean Corpuscular HGB CONC 33.7 g/dL (32.0-36.0); Mean Corpuscular Hemoglobin 31.3 pg (27.0-31.0); Mean Corpuscular Volume 92.8 fL (78.0-98.0); Mean Platelet Volume 7.3 fL (7.4-10.4); Platelet Count 208 thou/uL (130-400); Red Blood Cell (RBC) Count 3.53 mill/uL (4.20-5.40); White Blood Cell (WBC) Count 7.7 thou/uL (4.8-10.8)
[2021-04-30 04:25] LABS: Hemoglobin A1c 5.9 % (4.0-6.0)
[2021-04-30 04:39] LABS: ALT (SGPT) 9 U/L (8-55); AST (SGOT) 14 U/L (5-34); Albumin 3.3 g/dL (3.4-4.8); Alkaline Phosphatase 41 U/L (40-110); Anion Gap 11 mmol/L (10-20); BUN (Urea Nitrogen) 11 mg/dL (9.8-20.1); Bilirubin, Total 0.5 mg/dL (0.2-1.2); CRP (Inflammatory) Less than 0.50 mg/dL (= or < 0.5); Calc. Creatinine Clearance 68 mL/min (70-130); Calcium 9.1 mg/dL (7.8-10.44); Carbon Dioxide 27 mmol/L (23-31); Chloride 103 mmol/L (98-107); Globulin 2.9 g/dL (2.4-3.5); Glucose 101 mg/dL (83-110); Protein, Total 6.2 g/dL (5.8-8.1); Sodium 137 mmol/L (136-145)
[2021-04-30] MEDS ORDERED: Melatonin 3 MG TAB PO PRN (08:08)
[2021-04-30] MEDS ORDERED: Calcium Carbonate 500 MG ChewTAB PO PRN (08:09)
[2021-04-30] MEDS ORDERED: Hydrocerin (Eucerin) Cream 120 gm Jar TOP PRN (08:09)
[2021-04-30] MEDS ORDERED: Cepastat Lozenges 1 LOZ PO PRN (08:09)
[2021-04-30] MEDS ORDERED: Zolpidem Tartrate 5 MG TAB PO PRN (08:09)
[2021-04-30] MEDS ORDERED: Artificial Tear Sol 15 ML BOT EA EYE PRN (08:09)
[2021-04-30] MEDS ORDERED: GUAIFENESIN SF SOLN 200 MG/10 ML UDCUP PO PRN (08:09)
[2021-04-30] MEDS ORDERED: Sodium Chloride 0.65% Nasal 44 ML BOT EA NARE PRN (08:09)
[2021-04-30] MEDS ORDERED: Loratadine 10 MG TAB PO PRN (08:09)
[2021-04-30] MEDS: Famotidine 20 MG TAB PO SCH ×2 (09:20→20:59)
[2021-04-30] MEDS: Aspirin 81 mg Enteric Coated Tablet PO SCH (09:20)
[2021-04-30] MEDS: Lisinopril 20 MG TAB PO SCH (09:33)
[2021-04-30 11:52] LABS: SARS-CoV-2 PCR by NAA Not Detected (NotDetected)
[2021-04-30] MEDS: metFORMIN 500 MG TAB PO SCH (16:22)
[2021-04-30] MEDS ORDERED: Non-Formulary Item 1 EACH (Metformin Hcl [Metformin Hcl] 1,000 MG Tablet) PO SCH (17:00)
[2021-04-30] MEDS: Atorvastatin Calcium 10 MG TAB PO SCH (20:58)
[2021-04-30] MEDS ORDERED: LOVASTATIN 40 MG PO SCH (21:00)
[2021-05-01] MEDS: Famotidine 20 MG TAB PO SCH ×2 (08:14→20:51)
[2021-05-01] MEDS: Aspirin 81 mg Enteric Coated Tablet PO SCH (08:14)
[2021-05-01] MEDS: metFORMIN 500 MG TAB PO SCH ×2 (08:15→16:19)
[2021-05-01] MEDS: Lisinopril 20 MG TAB PO SCH (08:16)
[2021-05-01] MEDS ORDERED: Sodium Bicarbonate 2.5 MEQ/5 ML VIAL ONE (09:07)
[2021-05-01 12:12] LABS: RBC Count-Automated (BF) Greater than 890000 /cu.mm; WBC/Nucleated-Auto (BF) 4851 uL
[2021-05-01 12:15] LABS: BF Color Red; Clarity Cloudy/Turbid (Clear)
[2021-05-01 12:18] LABS: BF Segmented Neutrophils 63 %; Cell Count Non Hematic 25 %; Lymphocytes 12 %
[2021-05-01] MEDS: Atorvastatin Calcium 10 MG TAB PO SCH (20:51)
[2021-05-02] MEDS: metFORMIN 500 MG TAB PO SCH ×2 (08:22→16:55)
[2021-05-02] MEDS: Famotidine 20 MG TAB PO SCH ×2 (08:22→21:28)
[2021-05-02] MEDS: Aspirin 81 mg Enteric Coated Tablet PO SCH (08:22)
[2021-05-02] MEDS: Lisinopril 20 MG TAB PO SCH (08:24)
[2021-05-02] MEDS: Atorvastatin Calcium 10 MG TAB PO SCH (21:28)
[2021-05-03] MEDS: metFORMIN 500 MG TAB PO SCH (08:04)
[2021-05-03] MEDS: Lisinopril 20 MG TAB PO SCH (08:04)
[2021-05-03] MEDS: Aspirin 81 mg Enteric Coated Tablet PO SCH (08:04)
[2021-05-03] MEDS: Famotidine 20 MG TAB PO SCH (08:04)
[2021-05-03 08:05] VITALS: BP 133/60
[2021-05-03 08:28] VITALS: TEMP 98.5
== END 2021-05-03 16:06 | disposition home or self-care (01) | DRG 629 ==
LOC: INTOOBSV 17:58 → ONC 17:58 → OBSVTOIN 05-01 10:42
PROVIDERS: ADMIT Internal Medicine Infectious Disease; ATTEND Internal Medicine
PROC: 02HV33Z Insertion of Infusion Device into Superior Vena Cava, Percutaneous Approach (ICD-10-PCS; 2021-04-30)
PROC: B5181ZA Fluoroscopy of Superior Vena Cava using Low Osmolar Contrast, Guidance (ICD-10-PCS; 2021-04-30)
PROC: B548ZZA Ultrasonography of Superior Vena Cava, Guidance (ICD-10-PCS; 2021-04-30)
PROC: 0Q9 Lower Bones, Drainage (ICD-10-PCS; principal; 2021-05-02)
DX: E11.69 Type 2 diabetes mellitus with other specified complication (principal); S32.2XXA Fracture of coccyx, initial encounter for closed fracture; M46.28 Osteomyelitis of vertebra, sacral and sacrococcygeal region; I15.2 Hypertension secondary to endocrine disorders; Z20.822 Contact with and (suspected) exposure to COVID-19; K59.09 Other constipation; X58.XXXA Exposure to other specified factors, initial encounter; Z88.2 Allergy status to sulfonamides; Z91.041 Radiographic dye allergy status; Z79.899 Other long term (current) drug therapy; Z79.82 Long term (current) use of aspirin; Z79.84 Long term (current) use of oral hypoglycemic drugs; Z86.73 Personal history of transient ischemic attack (TIA), and cerebral infarction without residual deficits; Z90.49 Acquired absence of other specified parts of digestive tract; Z90.710 Acquired absence of both cervix and uterus
CPT/HCPCS: 36415; 36416; 36569; 49060; 77012; 80053; 83036; 85025; 85060; 86140; 87070; 87205; 89051; 90471; 90732; C1751; G0009; G0378; G0379; J1644; U0003; U0005

== ENCOUNTER 2022-12-14 09:48 | Inpatient (IN) | payer MEDICARE, OTHER ==
[2022-12-14 10:44] LABS: #Basophils 0.1 thou/uL (0.0-0.2); #Eosinphils 0.1 thou/uL (0.0-0.7); #Lymphocytes 2.4 thou/uL (1.20-3.40); #Monocytes 0.4 thou/uL (0.11-0.59); #Neutrophils 10.5 thou/uL (1.40-6.50); %Basophils 0.4 % (0.0-1.0); %Eosinophils 0.5 % (0.0-10.0); %Lymphocytes 17.8 % (21.0-51.0); %Monocytes 3.2 % (0.0-10.0); %Neutrophils 78.1 % (42.0-75.0); Hemoglobin 11.6 g/dL (12.0-16.0); Mean Corpuscular HGB CONC 32.9 g/dL (32.0-36.0); Mean Corpuscular Hemoglobin 34.4 pg (27.0-31.0); Mean Platelet Volume 7.4 fL (7.4-10.4); Platelet Count 230 10x3/uL (130-400); RBC Distribution Width 13.8 % (11.5-14.5); Red Blood Cell (RBC) Count 3.38 mill/uL (4.20-5.40); White Blood Cell (WBC) Count 13.4 10x3/uL (4.8-10.8)
[2022-12-14] MEDS ORDERED: diphenhydrAMINE 50 MG/ML VIAL ONE (10:54)
[2022-12-14] MEDS ORDERED: Famotidine/PF 20 mg/2ml Vial ONE (10:54)
[2022-12-14] MEDS ORDERED: methylPREDNISolone Sod Succ 40 MG VIAL ONE (10:54)
[2022-12-14 10:59] LABS: ALT (SGPT) 12 U/L (8-55); AST (SGOT) 17 U/L (5-34); Albumin 3.8 g/dL (3.4-4.8); Alkaline Phosphatase 49 U/L (40-110); Anion Gap 14 mmol/L (10-20); BUN (Urea Nitrogen) 8 mg/dL (9.8-20.1); Bilirubin, Total 0.4 mg/dL (0.2-1.2); Calc. Creatinine Clearance 0 mL/min (70-130); Calcium 8.9 mg/dL (7.8-10.44); Carbon Dioxide 26 mmol/L (23-31); Chloride 101 mmol/L (98-107); Estimated GFR 86; Glucose 232 mg/dL (83-110); Potassium 3.9 mmol/L (3.5-5.1); Protein, Total 6.8 g/dL (5.8-8.1); Sodium 137 mmol/L (136-145)
[2022-12-14] MEDS ORDERED: LORazepam 2 MG/ML SYR.(CARPUJECT) ONE (12:07)
[2022-12-14 12:12] LABS: CKMB 1.5 ng/mL (0-6.6)
[2022-12-14] MEDS ORDERED: Iopamidol-370 76% 500 ML MDV (1 ML CHARGE) ONE (14:02)
[2022-12-14 15:07] LABS: Troponin I 0.376 ng/mL (< 0.028)
[2022-12-14 15:21] LABS: Bacteria/HPF None Seen HPF (None Seen); Bilirubin Negative (Negative); Blood, Urine Negative (Negative); Clarity Clear (Clear); Glucose, Urine (Dipstick) 300 mg/dL (Negative); Ketone, Urine 10 mg/dL (Negative); Leukocyte Negative Leu/uL (Negative); Nitrite Negative (Negative); Protein, Urine (Dipstick) 100 mg/dL (Neg-Trace); RBC/HPF 0-3 HPF (0-3); Specific Gravity, Urine 1.018 (1.002-1.036); Squamous Epithelial None Seen HPF (0-3); Urobilinogen Normal mg/dL (Less than 2); WBC/HPF 0-3 HPF (0-3); pH, Urine 6.5 (5.0-9.0)
[2022-12-14] MEDS ORDERED: Ondansetron ODT 4 MG TAB SL PRN (16:45)
[2022-12-14] MEDS ORDERED: Acetaminophen 325 MG TAB PO PRN (16:45)
[2022-12-14] MEDS ORDERED: Ondansetron PF 4 MG/2 ML Vial IVP PRN ×2 (16:45→18:01)
[2022-12-14] MEDS ORDERED: levETIRAcetam in NS 500 MG in Premix Bag 1 BAG IVPB SCH (17:31)
[2022-12-14] MEDS ORDERED: levETIRAcetam 500 MG/5 ML VIAL SLOW IVP SCH (17:45)
[2022-12-14 17:49] VITALS: BMI 20.8
[2022-12-14 17:51] LABS: Troponin I 0.723 ng/mL (< 0.028)
[2022-12-14] MEDS ORDERED: Dextrose 50% Abboject 50 ML SYRINGE SLOW IVP PRN (18:01)
[2022-12-14] MEDS ORDERED: Dextrose 5% in Water 1,000 ML IV PRN (18:01)
[2022-12-14] MEDS ORDERED: Lorazepam 2 MG/ML VIAL SLOW IVP PRN (18:01)
[2022-12-14] MEDS ORDERED: Aspirin 300 MG Suppository PR SCH (18:01)
[2022-12-14] MEDS ORDERED: HumaLOG 300 UNITS/3 ML VIAL SC PRN ×2 (18:01)
[2022-12-14] MEDS ORDERED: hydrALAZINE 20 MG/ML VIAL SLOW IVP PRN (18:02)
[2022-12-14] MEDS: Sodium Chloride 0.9% 1,000 ML IV SCH (18:38)
[2022-12-14] MEDS ORDERED: OLANZapine 10 MG VIAL IM SCH (19:45)
[2022-12-14] MEDS ORDERED: Sterile Water 10 ML VIAL FS PRN (20:00)
[2022-12-14] MEDS: Nitroglycerin 2% Ointment 1 INCH/1 GM Packet TOP SCH (21:15)
[2022-12-14] MEDS: Famotidine/PF 20 mg/2ml Vial SLOW IVP SCH (21:31)
[2022-12-15] MEDS ORDERED: OLANZapine 10 MG VIAL IM SCH ×2 (00:45→01:00)
[2022-12-15] MEDS ORDERED: Sterile Water 10 ML VIAL FS SCH (01:00)
[2022-12-15 06:24] LABS: #Lymphocytes 1.3 thou/uL (1.20-3.40); #Monocytes 0.7 thou/uL (0.11-0.59); #Neutrophils 5.8 thou/uL (1.40-6.50); %Basophils 0.3 % (0.0-1.0); %Eosinophils 0.2 % (0.0-10.0); %Lymphocytes 16.9 % (21.0-51.0); %Monocytes 8.9 % (0.0-10.0); %Neutrophils 73.7 % (42.0-75.0); Mean Corpuscular HGB CONC 31.6 g/dL (32.0-36.0); Mean Corpuscular Hemoglobin 33.2 pg (27.0-31.0); Mean Platelet Volume 7.4 fL (7.4-10.4); Platelet Count 206 10x3/uL (130-400); RBC Distribution Width 13.7 % (11.5-14.5); Red Blood Cell (RBC) Count 3.02 mill/uL (4.20-5.40); White Blood Cell (WBC) Count 7.9 10x3/uL (4.8-10.8)
[2022-12-15] MEDS: Nitroglycerin 2% Ointment 1 INCH/1 GM Packet TOP SCH ×2 (06:24→15:21)
[2022-12-15 06:47] LABS: Anion Gap 12 mmol/L (10-20); BUN (Urea Nitrogen) 9 mg/dL (9.8-20.1); Calc. Creatinine Clearance 69 mL/min (70-130); Calcium 8.2 mg/dL (7.8-10.44); Carbon Dioxide 26 mmol/L (23-31); Cardiac Risk 2.7 (Less than 4.5); Chloride 102 mmol/L (98-107); Cholesterol 125 mg/dl (< 200 Desired); Estimated GFR 91; Glucose 136 mg/dL (83-110); HDL Cholesterol 46 mg/dL (>60 Neg Risk); LDL Cholesterol, Calculated 66 mg/dL; Potassium 3.9 mmol/L (3.5-5.1); Sodium 136 mmol/L (136-145); Triglycerides 64 mg/dL (Less than 150)
[2022-12-15] MEDS ORDERED: Aspirin 300 MG Suppository PR SCH ×2 (09:00)
[2022-12-15] MEDS: levETIRAcetam 500 MG/5 ML VIAL SLOW IVP SCH ×2 (09:13→21:24)
[2022-12-15] MEDS: Famotidine/PF 20 mg/2ml Vial SLOW IVP SCH (09:13)
[2022-12-15 09:17] LABS: Troponin I 1.921 ng/mL (< 0.028)
[2022-12-15 10:30] LABS: Prothrombin Time 14.1 sec (12.0-14.7)
[2022-12-15 10:41] LABS: PTT 22.4 sec (22.9-36.1)
[2022-12-15] MEDS: Sodium Chloride 0.9% 1,000 ML IV SCH (11:58)
[2022-12-15] MEDS ORDERED: Magnevist 469MG/ML 20 ML VIAL ONE (14:19)
[2022-12-15 16:47] LABS: Troponin I 2.721 ng/mL (< 0.028)
[2022-12-15 21:37] LABS: Critical Call Chem Troponin I RESULT DECREASING; Troponin I 2.584 ng/mL (< 0.028)
[2022-12-15] MEDS ORDERED: Nitroglycerin 2% Ointment 1 INCH/1 GM Packet TOP PRN (21:51)
[2022-12-16] MEDS: Sodium Chloride 0.9% 1,000 ML IV SCH (03:29)
[2022-12-16 05:24] LABS: #Basophils 0.2 thou/uL (0.0-0.2); #Lymphocytes 1.4 thou/uL (1.20-3.40); #Monocytes 0.5 thou/uL (0.11-0.59); #Neutrophils 4.3 thou/uL (1.40-6.50); %Basophils 2.5 % (0.0-1.0); %Eosinophils 0.2 % (0.0-10.0); %Lymphocytes 22.3 % (21.0-51.0); %Monocytes 8.1 % (0.0-10.0); %Neutrophils 66.9 % (42.0-75.0); Hemoglobin 9.5 g/dL (12.0-16.0); Mean Corpuscular HGB CONC 32.2 g/dL (32.0-36.0); Mean Corpuscular Hemoglobin 33.2 pg (27.0-31.0); Mean Platelet Volume 7.4 fL (7.4-10.4); Platelet Count 192 10x3/uL (130-400); RBC Distribution Width 13.4 % (11.5-14.5); Red Blood Cell (RBC) Count 2.87 mill/uL (4.20-5.40); White Blood Cell (WBC) Count 6.4 10x3/uL (4.8-10.8)
[2022-12-16 05:45] LABS: ALT (SGPT) 11 U/L (8-55); AST (SGOT) 27 U/L (5-34); Albumin 2.9 g/dL (3.4-4.8); Alkaline Phosphatase 36 U/L (40-110); Anion Gap 12 mmol/L (10-20); BUN (Urea Nitrogen) 13 mg/dL (9.8-20.1); Bilirubin, Total 0.5 mg/dL (0.2-1.2); Calc. Creatinine Clearance 68 mL/min (70-130); Calcium 8.1 mg/dL (7.8-10.44); Carbon Dioxide 25 mmol/L (23-31); Chloride 104 mmol/L (98-107); Estimated GFR 90; Globulin 2.2 g/dL (2.4-3.5); Glucose 112 mg/dL (83-110); Potassium 3.6 mmol/L (3.5-5.1); Protein, Total 5.1 g/dL (5.8-8.1); Sodium 137 mmol/L (136-145)
[2022-12-16] MEDS ORDERED: Pantoprazole 40 MG VIAL IVP SCH (09:00)
[2022-12-16] MEDS ORDERED: Aspirin 81 mg Enteric Coated Tablet PO SCH (09:00)
[2022-12-16 12:15] VITALS: BP 109/51; TEMP 98.1
== END 2022-12-16 15:24 | disposition home health service (06) | DRG 604 ==
LOC: ERS 09:48 → NEURO 16:39
PROVIDERS: ADMIT Internal Medicine; ATTEND Internal Medicine
DX: S00.83XA Contusion of other part of head, initial encounter (principal); I21.A1 Myocardial infarction type 2; M46.28 Osteomyelitis of vertebra, sacral and sacrococcygeal region; I10 Essential (primary) hypertension; E11.9 Type 2 diabetes mellitus without complications; W18.30XA Fall on same level, unspecified, initial encounter; R77.8 Other specified abnormalities of plasma proteins; Z79.899 Other long term (current) drug therapy; Z88.2 Allergy status to sulfonamides; Z91.041 Radiographic dye allergy status; Z79.82 Long term (current) use of aspirin; Z79.84 Long term (current) use of oral hypoglycemic drugs; Z86.73 Personal history of transient ischemic attack (TIA), and cerebral infarction without residual deficits; Z90.710 Acquired absence of both cervix and uterus; Z90.49 Acquired absence of other specified parts of digestive tract; Z87.442 Personal history of urinary calculi; Z82.3 Family history of stroke; Z83.3 Family history of diabetes mellitus; Z82.49 Family history of ischemic heart disease and other diseases of the circulatory system
CPT/HCPCS: 36415; 36416; 51702; 70450; 70553; 71260; 72125; 74177; 80048; 80053; 80061; 81003; 81015; 82553; 83605; 83880; 84146; 84484; 85025; 85610; 85730; 87040; 93005; 93010; 93306; 93880; 95712; 95819; 95957; 96374; 96375; A9579; C9113; J1200; J1650; J1953; J2060; J2920; J7050; Q9967; S0028